=== PATIENT | male | born 1975 | race Caucasian/White ===

== ENCOUNTER 2016-11-24 16:43 | Emergency (ER) | payer MEDICARE, MEDICAID ==
[2016-11-24] MEDS ORDERED: TETANUS/DIPHTHERIA/PERTUSSIS 0.5 ML SYRINGE IM ONE ×2 (17:37→17:45)
[2016-11-24] MEDS ORDERED: CIPROFLOXACIN 250 MG TABLET PO STA (17:56)
[2016-11-24] MEDS ORDERED: CIPROFLOXACIN 250 MG TABLET PO ONE ×2 (17:59→18:01)
[2016-11-24] MEDS ORDERED: IBUPROFEN 400 MG TABLET PO STA (18:06)
[2016-11-24] MEDS ORDERED: IBUPROFEN 400 MG TABLET PO ONE (18:08)
== END 2016-11-24 18:37 | disposition home or self-care (01) ==
DX: S91.331A Puncture wound without foreign body, right foot, initial encounter (principal); W45.0XXA Nail entering through skin, initial encounter; G40.909 Epilepsy, unspecified, not intractable, without status epilepticus
CPT/HCPCS: 99283; A9270

== ENCOUNTER 2017-02-27 12:48 | Outpatient (CLI) | payer MEDICARE, MEDICAID ==
[~2017-02-27 12:48] MED LIST: IOPAMIDOL-300 100 ML VIAL IVP ONE
[2017-02-27 13:11] LABS: BASOPHILS % (AUTO) 0.5 %; EOSINOPHILS # (AUTO) 0.1 10^3/uL (0.0-0.7); HCT - HEMATOCRIT 46.8 % (42.0-52.0); HGB - HEMOGLOBIN 16.5 g/dL (14.0-18.0); LYMPHOCYTES # (AUTO) 2.7 10^3/uL (1.5-3.5); LYMPHOCYTES % (AUTO) 47.2 %; MEAN CORPUSCULAR HEMOGLOBIN 30.2 pg (27.0-31.0); MEAN CORPUSCULAR HGB CONC 35.3 g/dL (32.0-36.0); MEAN CORPUSCULAR VOLUME 85.5 fL (80.0-94.0); MEAN PLATELET VOLUME 9.3 fL (7.4-11.4); MONOCYTES # (AUTO) 0.6 10^3/uL (0.0-1.0); MONOCYTES % (AUTO) 9.8 %; NEUTROPHILS # (AUTO) 2.4 10^3/uL (1.5-6.6); NEUTROPHILS % (AUTO) 41.5 %; NUCLEATED RED BLOOD CELLS AUTO 0.1 /100WBC; RED BLOOD COUNT 5.47 10^6/uL (4.70-6.10); RED CELL DISTRIBUTION WIDTH 14.2 % (12.0-15.0); UNCORRECTED WHITE BLOOD COUNT 5.8 x10^3/uL; WHITE BLOOD COUNT 5.8 x10^3/uL (4.8-10.8)
[2017-02-27 13:11] LABS: BILIRUBIN,URINE NEGATIVE (NEGATIVE); PH,URINE 8.5 PH (5.0-7.5)
[2017-02-27 13:18] LABS: WBC,URINE 0-3 /HPF (0-3)
[2017-02-27 13:22] LABS: ALBUMIN/GLOBULIN RATIO 1.6 (1.0-2.2); BILIRUBIN,TOTAL 0.9 mg/dL (0.2-1.0); CALCIUM 9.9 mg/dL (8.5-10.3); CREATININE 0.8 mg/dL (0.6-1.2); POTASSIUM 3.6 mmol/L (3.5-5.0); TOTAL PROTEIN 7.1 g/dL (6.7-8.2)
[2017-02-28] MEDS ORDERED: IOPAMIDOL-300 100 ML VIAL IVP ONE (05:18)
--- NOTE | 2017-02-28 15:33 | CT Report ---
CT IVP: 02/27/2017 CLINICAL HISTORY: Personal history of urinary calculi with lower back pain. COMPARISON: 11/12/2015 TECHNIQUE: Noncontrast, contrast enhanced CT exam of the abdomen and pelvis were done. Contrast enhanced study was performed after 100 mL of Isovue-300 was injected. In accordance with CT protocol optimization, one or more of the following dose reduction techniques were utilized for this exam: automated exposure control, adjustment of mA and/or KV based on patient size, or use of iterative reconstructive technique. FINDINGS: On noncontrast CT exam, right kidney and ureter show no calculi and no pyelocalyceal system dilatation is seen. Left kidney demonstrates two small calculi, each measuring 1-2 mm. These reside adjacent to a mid and lower pole jerman. Left pyelocalyceal system and left ureter show no significant abnormality. Bladder shows no significant abnormality on the noncontrast study. Contrast enhanced CT exam demonstrates right kidney and right ureter to be normal as is the right pyelocalyceal system. Left kidney demonstrates a small benign cyst within the lateral aspect of its upper pole measuring 6 mm. Left pyelocalyceal system and left ureter appear normal. Bladder shows no significant abnormality. Patient's prostate does not appear enlarged. Seminal vesicles appear normal. Lower lung rose show no significant abnormality. Liver, spleen and pancreas appear normal. Gallbladder is not distended. Common hepatic and common bile duct appeared normal. Pancreas is normal. Spleen appears normal. Adrenal glands are normal. Periaortic and pericaval regions show no significant abnormality. Mild gas pattern demonstrates no significant abnormality. The appendix is visualized and is normal. Small bowel shows no significant abnormality. Colon shows no significant abnormality. Bones show no significant abnormality. IMPRESSION: TWO TINY CALCULI ARE NOTED IN THE LEFT KIDNEY ADJACENT TO A MID AND LOWER POLE JERMAN WITHOUT OTHER ABNORMALITY NOTED. MTDD
== END 2017-02-27 12:49 | disposition home or self-care (01) ==
LOC: DI 12:48
PROVIDERS: ATTEND Family Medicine
DX: N20.0 Calculus of kidney (principal)
CPT/HCPCS: 36415; 74178; 80053; 81001; 85025; Q9967

== ENCOUNTER 2018-06-01 11:05 | Outpatient (CLI) | payer MEDICARE, MEDICAID ==
[2018-06-01 18:57] LABS: BASOPHILS % (AUTO) 0.4 %; EOSINOPHILS # (AUTO) 0.1 10^3/uL (0.0-0.7); EOSINOPHILS % (AUTO) 0.9 %; HGB - HEMOGLOBIN 17.1 g/dL (14.0-18.0); LYMPHOCYTES # (AUTO) 2.2 10^3/uL (1.5-3.5); LYMPHOCYTES % (AUTO) 36.4 %; MEAN CORPUSCULAR HEMOGLOBIN 29.9 pg (27.0-31.0); MEAN CORPUSCULAR HGB CONC 33.7 g/dL (32.0-36.0); MEAN CORPUSCULAR VOLUME 88.7 fL (80.0-94.0); MEAN PLATELET VOLUME 8.6 fL (7.4-11.4); MONOCYTES # (AUTO) 0.5 10^3/uL (0.0-1.0); MONOCYTES % (AUTO) 8.1 %; NEUTROPHILS # (AUTO) 3.3 10^3/uL (1.5-6.6); NEUTROPHILS % (AUTO) 54.2 %; PLT - PLATELET COUNT 169 10^3/uL (130-450); RED BLOOD COUNT 5.73 10^6/uL (4.70-6.10); RED CELL DISTRIBUTION WIDTH 14.3 % (12.0-15.0); WHITE BLOOD COUNT 6.2 x10^3/uL (4.8-10.8)
[2018-06-01 19:36] LABS: ALBUMIN/GLOBULIN RATIO 1.3 (1.0-2.2); ALKALINE PHOSPHATASE 74 IU/L (42-121); ALT ALANINE AMINOTRANSFERASE 87 IU/L (10-60); AST ASPARTATE AMINOTRANSFERASE 39 IU/L (10-42); BILIRUBIN,TOTAL 0.4 mg/dL (0.2-1.0); BUN - BLOOD UREA NITROGEN 14 mg/dL (6-20); CALCIUM 9.7 mg/dL (8.5-10.3); CARBON DIOXIDE - CO2 27 mmol/L (21-32); CHLORIDE 96 mmol/L (101-111); CHOL/HDL RATIO 6.2 (<5.0); CHOLESTEROL 279 mg/dL; CREATININE 0.8 mg/dL (0.6-1.2); GFR - MDRD 105 (>89); GLUCOSE 100 mg/dL (70-100); HDL CHOLESTEROL 45 mg/dL; LDL CHOLESTEROL,CALCULATED 168 mg/dL; LDL/HDL RATIO 3.7 (<3.6); SODIUM 135 mmol/L (135-145); VALPROIC ACID (DEPAKOTE) 100.2 ug/mL; VLDL CHOLESTEROL 66 mg/dL
== END 2018-06-01 11:06 | disposition home or self-care (01) ==
LOC: LAB.WCP 11:05
PROVIDERS: ATTEND Physician Assistant Medical
DX: I10 Essential (primary) hypertension (principal); E78.5 Hyperlipidemia, unspecified; R56.9 Unspecified convulsions; L73.9 Follicular disorder, unspecified
CPT/HCPCS: 36415; 80053; 80061; 80164; 80175; 83721; 85025

== ENCOUNTER 2018-06-15 09:47 | Outpatient (CLI) | payer MEDICARE, MEDICAID ==
--- NOTE | 2018-06-15 15:49 | Ultrasound Report ---
Reason: FATTY INFILTRATION OF THE LIVER Procedure Date: 06/15/2018 Accession Number: [id number] / [id number] Procedure: US - Abdomen Limited CPT Code: FULL RESULT: EXAM: ABDOMEN ULTRASOUND LIMITED, RUQ EXAM DATE: 06/15/2018 11:25 AM. CLINICAL HISTORY: Fatty liver. COMPARISON: ABDOMEN LIMITED 11/02/2015. TECHNIQUE: Real-time scanning was performed with static images obtained. FINDINGS: Liver: The liver is diffusely echogenic in appearance suggesting fibrofatty infiltration. No suspicious lesions or masses are identified. Some mild spurring is seen along the gallbladder fossa region. The liver is mildly enlarged measuring 19.7 cm, previously 16.6 cm. 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 Main portal vein flow: Hepatopetal. Gallbladder: Normal. No stones, wall thickening, or sonographic Allan's sign. Biliary System: CBD measures 5 mm. No intrahepatic or extrahepatic ductal dilatation. Other: None. IMPRESSION: Mild hepatomegaly and fatty change of the liver similar in appearance to prior study although there may be increase in overall liver size. RADIA
== END 2018-06-15 09:48 | disposition home or self-care (01) ==
LOC: DI 09:47
PROVIDERS: ATTEND Physician Assistant Medical
DX: K76.0 Fatty (change of) liver, not elsewhere classified (principal)
CPT/HCPCS: 76705

== ENCOUNTER 2019-02-07 13:41 | Outpatient (CLI) | payer MEDICARE, MEDICAID ==
--- NOTE | 2019-02-07 19:28 | XRAY Report ---
Reason: LOW BACK PAIN,ACUTE, LT SHOULDER PAIN Procedure Date: 02/07/2019 Accession Number: [id number] / [id number] Procedure: XR - Shoulder 3 View LT CPT Code: FULL RESULT: EXAM: LEFT SHOULDER RADIOGRAPHY EXAM DATE: 02/07/2019 02:22 PM. CLINICAL HISTORY: Fell from ladder 1 week ago now with left shoulder pain COMPARISON: None. TECHNIQUE: 3 views. FINDINGS: Bones: There is a 1 cm ossific fragment adjacent to the greater tuberosity. This may represent an avulsion fracture or calcific tendinitis. A definite fracture donor site is not identified. Joints: The glenohumeral and acromioclavicular joints are anatomically aligned. Soft tissues: The included hemithorax is unremarkable. IMPRESSION: 1 cm calcific fragment adjacent to the greater tuberosity. Question calcific tendinitis versus fracture. Further evaluation by MRI would be useful. RADIA
--- NOTE | 2019-02-08 08:59 | XRAY Report ---
Reason: LOW BACK PAIN LT SHOULDER Procedure Date: 02/07/2019 Accession Number: [id number] / [id number] Procedure: XR - Lumbar Spine 2 View CPT Code: FULL RESULT: EXAM: LUMBOSACRAL SPINE RADIOGRAPHY EXAM DATE: 02/07/2019 02:22 PM. CLINICAL HISTORY: Lumbar spine pain after fall from ladder COMPARISONS: CT IVP 02/27/2017. TECHNIQUE: 2 views. FINDINGS: Alignment: Slight dextroscoliosis apex at L2. Bones: Five [id number]-[id number] lumbar vertebral bodies are present. No fractures or bone lesions. Disks: Disk heights are maintained. Facets: Lower lumbar degenerative changes. Sacroiliac Joints: Unremarkable. Soft Tissues: Unremarkable. IMPRESSION: Mild lumbar dextroscoliosis and early degenerative change of the lower lumbar facet joints. No superimposed acute findings noted. RADIA
== END 2019-02-07 13:42 | disposition home or self-care (01) ==
LOC: DI 13:41
PROVIDERS: ATTEND Physician Assistant Medical
DX: M47.9 Spondylosis, unspecified (principal); M41.86 Other forms of scoliosis, lumbar region
CPT/HCPCS: 72100

== ENCOUNTER 2019-02-13 15:42 | Outpatient (CLI) | payer MEDICARE, MEDICAID ==
--- NOTE | 2019-02-14 13:27 | MRI Report ---
Reason: SHOULDER PAIN,LEFT Procedure Date: 02/13/2019 Accession Number: [id number] / [id number] Procedure: MRI - Shoulder LT W/O CPT Code: FULL RESULT: EXAM: LEFT SHOULDER MRI WITHOUT CONTRAST EXAM DATE: 02/13/2019 05:04 PM. CLINICAL HISTORY: Left shoulder pain and limited range of motion for several months. COMPARISON: SHOULDER 3 VIEW LT 02/07/2019 2:31 PM. TECHNIQUE: Multiplanar, multisequence T1-weighted and fluid-sensitive sequences of the shoulder without contrast. Other: None. FINDINGS: Acromioclavicular Region: The acromion is type I. Subcortical marrow edema, slight cortical irregularity, and tiny subcortical cysts at the distal end of the clavicle. The coracoacromial and coracoclavicular ligaments are intact. No subacromial/subdeltoid bursal fluid. Glenohumeral Region: No subluxation. No effusion or loose bodies. The articular cartilage is unremarkable. The glenohumeral ligaments and joint capsule are unremarkable. Bone Marrow: No fracture, marrow edema or bone lesions. Labrum: The labrum is unremarkable on this nonarthrographic study. Musculature/Rotator Cuff: Tendinosis and mild bursal surface fraying of the supraspinatus tendon. Tendinosis at the infraspinatus tendon. Focal calcification at the distal aspect of the supraspinatus-infraspinatus tendon junction. The teres minor tendon is intact. There is subscapularis tendinosis. No edema or fatty atrophy. Biceps Tendon: The long head of the biceps tendon and biceps mat are intact. Other: The subcutaneous tissues are unremarkable. IMPRESSION: 1. Calcific tendinosis of the supraspinatus and infraspinatus tendons. Mild bursal surface fraying of the supraspinatus tendon. 2. Acromioclavicular joint osteoarthritis. RADIA
== END 2019-02-13 15:43 | disposition home or self-care (01) ==
LOC: DI 15:42
PROVIDERS: ATTEND Physician Assistant Medical
DX: M19.012 Primary osteoarthritis, left shoulder (principal); M75.32 Calcific tendinitis of left shoulder

== ENCOUNTER 2019-06-05 08:00 | Outpatient (CLI) | payer MEDICARE, MEDICAID ==
[2019-06-05 18:51] LABS: BASOPHILS % (AUTO) 0.4 %; EOSINOPHILS % (AUTO) 0.7 %; HGB - HEMOGLOBIN 16.7 g/dL (14.0-18.0); LYMPHOCYTES # (AUTO) 2.5 10^3/uL (1.5-3.5); LYMPHOCYTES % (AUTO) 45.9 %; MEAN CORPUSCULAR HEMOGLOBIN 30.7 pg (27.0-31.0); MEAN CORPUSCULAR HGB CONC 34.9 g/dL (32.0-36.0); MEAN CORPUSCULAR VOLUME 87.9 fL (80.0-94.0); MEAN PLATELET VOLUME 10.7 fL (7.4-11.4); MONOCYTES # (AUTO) 0.6 10^3/uL (0.0-1.0); MONOCYTES % (AUTO) 10.4 %; NEUTROPHILS # (AUTO) 2.3 10^3/uL (1.5-6.6); NEUTROPHILS % (AUTO) 42.1 %; PLT - PLATELET COUNT 209 10^3/uL (130-450); RED BLOOD COUNT 5.44 10^6/uL (4.70-6.10); RED CELL DISTRIBUTION WIDTH 13.3 % (12.0-15.0); WHITE BLOOD COUNT 5.5 x10^3/uL (4.8-10.8)
[2019-06-05 19:25] LABS: ALBUMIN 4.4 g/dL (3.2-5.5); ALBUMIN/GLOBULIN RATIO 1.5 (1.0-2.2); ALKALINE PHOSPHATASE 59 IU/L (42-121); ALT ALANINE AMINOTRANSFERASE 39 IU/L (10-60); AST ASPARTATE AMINOTRANSFERASE 23 IU/L (10-42); BILIRUBIN,TOTAL 0.7 mg/dL (0.2-1.0); BUN - BLOOD UREA NITROGEN 19 mg/dL (6-20); CALCIUM 9.8 mg/dL (8.5-10.3); CARBON DIOXIDE - CO2 28 mmol/L (21-32); CHLORIDE 96 mmol/L (101-111); CHOL/HDL RATIO 5.1 (<5.0); CHOLESTEROL 250 mg/dL; CREATININE 0.8 mg/dL (0.6-1.2); GFR - MDRD 105 (>89); GLUCOSE 92 mg/dL (70-100); HDL CHOLESTEROL 49 mg/dL; LDL CHOLESTEROL,CALCULATED 159 mg/dL; LDL/HDL RATIO 3.2 (<3.6); SODIUM 134 mmol/L (135-145); TOTAL PROTEIN 7.4 g/dL (6.7-8.2); VLDL CHOLESTEROL 42 mg/dL
[2019-06-05 19:34] LABS: VALPROIC ACID (DEPAKOTE) 86.4 ug/mL
[2019-06-05 19:51] LABS: PHENYTOIN (DILANTIN) < 2.5 ug/mL
== END 2019-06-05 23:59 | disposition home or self-care (01) ==
LOC: LAB.WCP 08:00
PROVIDERS: ATTEND Physician Assistant Medical
DX: E78.5 Hyperlipidemia, unspecified (principal); I10 Essential (primary) hypertension; G40.909 Epilepsy, unspecified, not intractable, without status epilepticus
CPT/HCPCS: 36415; 80053; 80061; 80164; 80175; 80185; 83721; 85025

== ENCOUNTER 2019-10-09 07:10 | Emergency (ER) | payer MEDICARE, MEDICAID ==
--- NOTE | 2019-10-09 07:38 | ED Physician Documentation ---
PD HPI NVD - Stated complaint Stated Complaint: VOMITING - Chief complaint Chief Complaint: Abd Pain - History obtained from History obtained from: Patient - History of Present Illness Timing - onset: How many days ago (2) Timing - duration: Days (2) Timing - details: Gradual onset, Still present Associated symptoms: Fever, Abdominal pain (intermittent upper cramping pain with vomiting; not consistent.), Loss of appetite. No: Near syncope / syncope Contributing factors: No: Bad food, Travel, Recent antibiotics Improved by: No: Vomiting Worsened by: Eating Similar symptoms before: Has not had sx before Recently seen: Not recently seen Review of Systems Constitutional: reports: Fever, Chills, Myalgias Nose: reports: Congestion. denies: Rhinorrhea / runny nose Throat: reports: Sore throat Respiratory: reports: Cough. denies: Dyspnea, Wheezing GI: reports: Abdominal Pain (upper abd at times), Nausea, Vomiting. denies: Diarrhea Skin: denies: Rash, Lesions Neurologic: reports: Generalized weakness. denies: Focal weakness, Numbness, Near syncope PD PAST MEDICAL HISTORY - Past Medical History Past Medical History: No Cardiovascular: None Respiratory: None Neuro: None Endocrine/Autoimmune: None - Past Surgical History Past Surgical History: Yes HEENT: Tonsil/Adenoidectomy - Present Medications Home Medications: Ambulatory Orders Medication Instructions Recorded Confirmed Albuterol Sulf [Ventolin Hfa 1 puffs INH DAILY 11/02/15 11/12/15 Inhaler] Cyclobenzaprine [Flexeril] 10 mg PO DAILY 11/02/15 12/09/[address] [Voltaren] 75 mg PO DAILY 11/02/15 12/09/15 Divalproex ER [Depakote ER] 500 mg PO BID 11/02/15 12/09/15 Loratadine/Pseudoephedrine 1 tab PO DAILY 11/02/15 12/09/15 [Loratadine-D 12 Hour Tablet] Verapamil ER [Calan SA] 180 mg PO DAILY 11/02/15 12/09/15 diphenhydrAMINE [Benadryl] 25 mg PO DAILY 11/02/15 12/09/15 lamoTRIgine [LaMICtal] 25 mg PO DAILY 11/02/15 12/09/15 traZODone [Desyrel] 100 mg PO DAILY 11/02/15 12/09/15 Azithromycin [Zithromax] 250 mg PO DAILY #6 tablet 12/09/15 HYDROcod/ACETAM 5/325 [Perkins 5/325] 1 - 2 ea PO Q6H PRN #15 tablet 12/09/15 Ciprofloxacin HCl [Cipro] 500 mg PO BID #9 tablet 11/24/16 Benzonatate [Tessalon Perle] 100 mg PO TID PRN #25 capsule 10/09/19 Ondansetron Odt [Zofran] 4 mg TL Q6H PRN #15 tablet 10/09/19 dexAMETHasone [Decadron] 4 mg PO DAILY #5 tablet 10/09/19 - Allergies Allergies/Adverse Reactions: Allergies Allergy/AdvReac Type Severity Reaction Status Date / Time Penicillins Allergy Rash Verified 10/09/19 07:18 Sulfa (Sulfonamide Allergy Rash Verified 10/09/19 07:18 Antibiotics) - Social History Does the pt smoke?: No Smoking Status: Never smoker Does the pt drink ETOH?: No Does the pt have substance abuse?: No - Immunizations Immunizations are current?: Yes - POLST Patient has POLST: No PD ED PE NORMAL - Vitals Vital signs reviewed: Yes - General General: Alert and oriented X 3, No acute distress, Well developed/nourished - HEENT HEENT: Moist mucous membranes, Pharynx benign - Neck Neck: Supple, no meningeal sign, No adenopathy - Cardiac Cardiac: RRR, No murmur - Respiratory Respiratory: Clear bilaterally - Abdomen Abdomen: Normal bowel sounds, Soft, Non distended, No organomegaly, Other (minimally tender epigastric area without guarding nor percussion tenderness. ) - Back Back: No CVA TTP - Derm Derm: Normal color, Warm and dry, No rash - Neuro Neuro: Alert and oriented X 3, No motor deficit, Normal speech Results - Vitals Vitals: Vital Signs - 24 hr 10/09/19 10/09/19 10/09/19 07:15 08:04 09:11 Temperature 36.7 C 38.3 C H 38 C H Heart Rate 99 86 89 Respiratory 16 18 18 Rate Blood Pressure 132/102 H 145/85 H 118/90 H O2 Saturation 96 92 100 Oxygen O2 Source Room air PD MEDICAL DECISION MAKING - ED course Complexity details: considered differential (seems flu-like with fever, cough, vomiting. Mild symptoms now and patient opting for PO meds for symptoms and not much eval. Did not feel he needed IV. ), d/w patient Departure - Departure Disposition: 01 Home, Self Care Clinical Impression: Nausea & vomiting Qualifiers: Vomiting type: unspecified Vomiting Intractability: non-intractable Qualified Code(s): R11.2 - Nausea with vomiting, unspecified Upper respiratory infection Qualifiers: URI type: unspecified URI Qualified Code(s): J06.9 - Acute upper respiratory infection, unspecified Condition: Stable Record reviewed to determine appropriate education?: Yes Instructions: ED Nausea Vomiting Follow-Up: Jaclyn Turk PA-C [Primary Care Provider] - Prescriptions: Benzonatate [Tessalon Perle] 100 mg PO TID PRN #25 capsule PRN Reason: Cough dexAMETHasone [Decadron] 4 mg PO DAILY #5 tablet Ondansetron Odt [Zofran] 4 mg TL Q6H PRN #15 tablet PRN Reason: Nausea / Vomiting Comments: Sounds likely to be a viral illness with the cough pain and nausea and vomiting. Use ondansetron if needed for nausea and vomiting as directed. Tessalon if needed for cough. Decadron steroid to reduce inflammation of the airways and will help with nausea as well. Tylenol if needed for fevers or pains. Stay well-hydrated with frequent fluids. I would anticipate 5 to 7 days of illness. Discharge Date/Time: 10/09/19 09:19
[2019-10-09] MEDS ORDERED: ONDANSETRON ODT 4 MG TABLET TL STA (08:05)
[2019-10-09] MEDS ORDERED: BENZONATATE 100 MG CAPSULE PO STA (08:06)
[2019-10-09] MEDS ORDERED: CHERRY SYRUP 10 ML UDC PO ONE (08:06)
[2019-10-09] MEDS ORDERED: DEXAMETHASONE 10 MG/ML VIAL PO STA (08:06)
[2019-10-09 09:12] VITALS: BP 118/90
== END 2019-10-09 09:19 | disposition home or self-care (01) ==
LOC: ED 07:10
DX: J06.9 Acute upper respiratory infection, unspecified (principal); R11.2 Nausea with vomiting, unspecified; R10.13 Epigastric pain
CPT/HCPCS: 99283; 99284; A9270; Q0162

== ENCOUNTER 2020-02-12 10:11 | Outpatient (CLI) | payer MEDICARE, MEDICAID ==
--- NOTE | 2020-02-13 01:14 | XRAY Report ---
Reason: LEFT HAND PALMAR DEEP LACERATION Procedure Date: 02/12/2020 Accession Number: [id number] / [id number] Procedure: WCP - Hand 3 View LT CPT Code: Final Report FULL RESULT: EXAM: LEFT HAND RADIOGRAPHY EXAM DATE: 02/12/2020 10:11 AM. CLINICAL HISTORY: LEFT HAND PALMAR DEEP LACERATION. COMPARISON: XR HAND MIN 3 VIEWS 10/27/2012 3:50 AM. TECHNIQUE: 3 views. FINDINGS: Bones: Normal. No fractures or bone lesions. Joints: Normal. No subluxations. Soft Tissues: Soft tissue swelling. No radiopaque foreign body in the soft tissues. IMPRESSION: Soft tissue swelling, but no evidence of fracture or radiopaque foreign body. RADIA
== END 2020-02-12 23:59 | disposition home or self-care (01) ==
LOC: DI.WCP 10:11
PROVIDERS: ATTEND Family Medicine
DX: S65.3 Injury of deep palmar arch (principal)

== ENCOUNTER 2021-06-07 21:16 | Outpatient (CLI) | payer MEDICARE, MEDICAID | END 2021-06-07 21:17 | disposition critical access hospital (66) | LOC: EMS 21:16 | DX: R07.9 Chest pain, unspecified (principal) | CPT/HCPCS: A0425; A0429 ==

== ENCOUNTER 2021-06-07 21:43 | Emergency (ER) | payer MEDICARE, MEDICAID ==
--- NOTE | 2021-06-08 00:40 | ED Physician Documentation ---
PD HPI CHEST PAIN - Stated complaint Stated Complaint: CP - Chief complaint Chief Complaint: Allergic Rx - History obtained from History obtained from: Patient - History of Present Illness Timing - onset: Yesterday Timing - onset during: Light activity (He got his 2nd Moderna vaccine yesterday and couple hours later started to have sternal area chest pain. This has persisted into today, worse with movement and palpation.) Timing - duration: Days (1) Timing - details: Gradual onset, Still present Quality: Aching, Sharp Location: Left chest (at sternal border) Radiation: No: Jaw, Neck, Back Associated symptoms: No: Shortness of air, Diaphoresis, Nausea, Feeling faint / dizzy, Palpitations Similar symptoms before: Has not had sx before Recently seen: Clinic (got Moderna 2nd vaccine yesterday and onset of the pain couple hours later.) Review of Systems Constitutional: denies: Fever, Chills Nose: denies: Rhinorrhea / runny nose, Congestion Throat: denies: Sore throat Cardiac: reports: Chest pain / pressure (local to left sternal border). denies: Palpitations, Pedal edema, Calf pain Respiratory: denies: Dyspnea, Cough, Wheezing GI: denies: Abdominal Pain, Nausea, Vomiting Musculoskeletal: denies: Extremity swelling Neurologic: denies: Focal weakness, Numbness, Near syncope PD PAST MEDICAL HISTORY - Past Medical History Cardiovascular: None Respiratory: None Neuro: None Endocrine/Autoimmune: None GI: None : None Psych: None Musculoskeletal: None Derm: None - Past Surgical History Past Surgical History: Yes HEENT: Tonsil/Adenoidectomy - Present Medications Home Medications: Ambulatory Orders Medication Instructions Recorded Confirmed Albuterol Sulf [Ventolin Hfa 1 puffs INH DAILY 11/02/15 11/12/15 Inhaler] Cyclobenzaprine [Flexeril] 10 mg PO DAILY 11/02/15 12/09/[address] [Voltaren] 75 mg PO DAILY 11/02/15 12/09/15 Divalproex ER [Depakote ER] 500 mg PO BID 11/02/15 12/09/15 Loratadine/Pseudoephedrine 1 tab PO DAILY 11/02/15 12/09/15 [Loratadine-D 12 Hour Tablet] Verapamil ER [Calan SA] 180 mg PO DAILY 11/02/15 12/09/15 diphenhydrAMINE [Benadryl] 25 mg PO DAILY 11/02/15 12/09/15 lamoTRIgine [LaMICtal] 25 mg PO DAILY 11/02/15 12/09/15 traZODone [Desyrel] 100 mg PO DAILY 11/02/15 12/09/15 Azithromycin [Zithromax] 250 mg PO DAILY #6 tablet 12/09/15 HYDROcod/ACETAM 5/325 [Rowena 5/325] 1 - 2 ea PO Q6H PRN #15 tablet 12/09/15 Ciprofloxacin HCl [Cipro] 500 mg PO BID #9 tablet 11/24/16 Benzonatate [Tessalon Perle] 100 mg PO TID PRN #25 capsule 10/09/19 Ondansetron Odt [Zofran] 4 mg TL Q6H PRN #15 tablet 10/09/19 dexAMETHasone [Decadron] 4 mg PO DAILY #5 tablet 10/09/19 - Allergies Allergies/Adverse Reactions: Allergies Allergy/AdvReac Type Severity Reaction Status Date / Time Penicillins Allergy Rash Verified 06/07/21 21:53 Sulfa (Sulfonamide Allergy Rash Verified 06/07/21 21:53 Antibiotics) - Social History Does the pt smoke?: No Smoking Status: Never smoker Does the pt drink ETOH?: No Does the pt have substance abuse?: No - Immunizations Immunizations are current?: Yes - POLST Patient has POLST: No PD ED PE NORMAL - Vitals Vital signs reviewed: Yes - General General: Alert and oriented X 3, No acute distress, Well developed/nourished - HEENT HEENT: Moist mucous membranes, Pharynx benign - Neck Neck: Supple, no meningeal sign, No adenopathy - Cardiac Cardiac: RRR, No murmur, No rub - Respiratory Respiratory: Clear bilaterally, Other (local chestwall tenderness reproducing the pain at left sternal border cartilage. ) - Abdomen Abdomen: Soft, Non tender - Derm Derm: Normal color, Warm and dry, No rash - Extremities Extremities: No edema, No calf tenderness / cord - Neuro Neuro: Alert and oriented X 3, No motor deficit, Normal speech Results - Vitals Vitals: Vital Signs - 24 hr 06/07/21 06/08/21 06/08/21 21:53 00:16 01:28 Temperature 36.5 C 36.3 C L 36.4 C L Heart Rate 100 102 H 89 Respiratory 16 18 18 Rate Blood Pressure 159/79 H 142/102 H 140/81 H O2 Saturation 100 100 99 Oxygen O2 Source Room air - EKG (time done) 22:12 Rate: Rate (enter#) (99) Rhythm: NSR Arcade: Normal Intervals: Normal UT QRS: Normal Ischemia: Normal ST segments. No: ST elevation c/w ischemia, ST depression PD MEDICAL DECISION MAKING - ED course Complexity details: considered differential (Seems costochondral with reproducible pain on palpation of the left sternal border. Presume inflammatory response from the vaccine. No rash. EKG is normal and vitals are good. Seems low risk for other process and shared decision is to not do much more testing.), d/w patient Departure - Departure Disposition: 01 Home, Self Care Clinical Impression: Costochondral chest pain Condition: Stable Record reviewed to determine appropriate education?: Yes Instructions: ED Chest Pain Costochondritis Follow-Up: Jaclyn Turk PA-C [Primary Care Provider] - Comments: The vaccines can cause inflammation throughout some of the muscles and joints. This seems to be some inflammation in the cartilage of the chest wall. You can use some ibuprofen or naproxen 2-3 times daily for the next few days. Add Tylenol if needed for pain. Your EKG and vital signs are good. No signs of heart related cause. Discharge Date/Time: 06/08/21 01:28
[2021-06-08] MEDS ORDERED: IBUPROFEN 600 MG TABLET PO STA (01:13)
[2021-06-08] MEDS ORDERED: ACETAMINOPHEN 325 MG TABLET PO STA (01:13)
[2021-06-08 01:29] VITALS: BP 140/81
== END 2021-06-08 01:28 | disposition home or self-care (01) ==
LOC: EDUNIT# → ED 21:43
DX: M94.0 Chondrocostal junction syndrome [Tietze] (principal)
CPT/HCPCS: 93005; 99283; 99284; A9270

== ENCOUNTER 2021-07-21 08:00 | Outpatient (CLI) | payer MEDICARE, MEDICAID ==
--- NOTE | 2021-07-21 16:34 | XRAY Report ---
PROCEDURE: Foot 3 View LT INDICATIONS: L FOOT PX TECHNIQUE: 3 views of the foot were acquired. COMPARISON: None FINDINGS: Bones: No fractures or dislocations. No suspicious bony lesions. Soft tissues: No tibiotalar joint effusion. Achilles tendon appears normal. IMPRESSION: No acute left foot fracture or dislocation. No suspicious bony lesion. Reviewed by: William Azul MD on 07/21/2021 4:33 PM PDT Approved by: William Azul MD on 07/21/2021 4:33 PM PDT Station ID: [id number]
== END 2021-07-21 23:59 | disposition home or self-care (01) ==
LOC: DI.N 08:00
PROVIDERS: ATTEND Family Medicine
DX: M79.672 Pain in left foot (principal)

== ENCOUNTER 2021-09-22 12:46 | Outpatient (CLI) | payer MEDICARE, MEDICAID ==
[2021-09-22 17:55] LABS: BASOPHILS % (AUTO) 0.4 %; EOSINOPHILS % (AUTO) 0.7 %; HGB - HEMOGLOBIN 17.3 g/dL (14.0-18.0); LYMPHOCYTES # (AUTO) 2.4 10^3/uL (1.5-3.5); LYMPHOCYTES % (AUTO) 42.8 %; MEAN CORPUSCULAR HEMOGLOBIN 29.9 pg (27.0-31.0); MEAN CORPUSCULAR HGB CONC 34.6 g/dL (32.0-36.0); MEAN CORPUSCULAR VOLUME 86.4 fL (80.0-94.0); MEAN PLATELET VOLUME 10.9 fL (7.4-11.4); MONOCYTES # (AUTO) 0.5 10^3/uL (0.0-1.0); MONOCYTES % (AUTO) 8.8 %; NEUTROPHILS # (AUTO) 2.6 10^3/uL (1.5-6.6); NEUTROPHILS % (AUTO) 46.8 %; PLT - PLATELET COUNT 185 10^3/uL (130-450); RED BLOOD COUNT 5.79 10^6/uL (4.70-6.10); RED CELL DISTRIBUTION WIDTH 12.8 % (12.0-15.0); WHITE BLOOD COUNT 5.5 x10^3/uL (4.8-10.8)
[2021-09-22 18:17] LABS: ALBUMIN 4.3 g/dL (3.2-5.5); ALBUMIN/GLOBULIN RATIO 1.4 (1.0-2.2); ALKALINE PHOSPHATASE 76 IU/L (42-121); ALT ALANINE AMINOTRANSFERASE 98 IU/L (10-60); AST ASPARTATE AMINOTRANSFERASE 43 IU/L (10-42); BILIRUBIN,TOTAL 0.7 mg/dL (0.2-1.0); BUN - BLOOD UREA NITROGEN 14 mg/dL (6-20); CALCIUM 9.7 mg/dL (8.5-10.3); CARBON DIOXIDE - CO2 28 mmol/L (21-32); CHLORIDE 98 mmol/L (101-111); CHOL/HDL RATIO 6.8 (<5.0); CHOLESTEROL 285 mg/dL; CREATININE 0.9 mg/dL (0.6-1.2); GFR - MDRD 90 (>89); GLUCOSE 109 mg/dL (70-100); HDL CHOLESTEROL 42 mg/dL; LDL CHOLESTEROL,CALCULATED 200 mg/dL; LDL/HDL RATIO 4.8 (<3.6); POTASSIUM 4.3 mmol/L (3.5-5.0); SODIUM 136 mmol/L (135-145); TOTAL PROTEIN 7.3 g/dL (6.7-8.2); TRIGLYCERIDES 214 mg/dL; VALPROIC ACID (DEPAKOTE) 97.1 ug/mL; VLDL CHOLESTEROL 43 mg/dL
[2021-09-22 18:24] LABS: THYROID STIMULATING HORMONE 1.8 uIU/mL (0.34-5.60)
== END 2021-09-22 23:59 | disposition home or self-care (01) ==
LOC: LAB.WCP 12:46
PROVIDERS: ATTEND Physician Assistant Medical
DX: E78.5 Hyperlipidemia, unspecified (principal); J30.9 Allergic rhinitis, unspecified; I10 Essential (primary) hypertension; G40.909 Epilepsy, unspecified, not intractable, without status epilepticus
CPT/HCPCS: 36415; 80053; 80061; 80164; 80175; 83721; 84443; 85025

== ENCOUNTER 2021-10-21 14:20 | Outpatient (CLI) | payer MEDICARE, MEDICAID ==
--- NOTE | 2021-10-21 17:20 | XRAY Report ---
REVISED: THIS REPORT WAS ORIGINALLY SIGNED ON 10/21/2021 @ 5:18 PM. EXAM CODE IS REVISED ON 11/01/2021. PROCEDURE: Foot 3 View LT INDICATIONS: LEFT FOOT OCCULT FX VS ARTHRITIS TECHNIQUE: 3 views of the foot were acquired. COMPARISON: 12/15/2016 FINDINGS: Bones: No fractures or dislocations. No suspicious bony lesions. Soft tissues: No tibiotalar joint effusion. Achilles tendon appears normal. IMPRESSION: No fracture. No osseous lesion. If there are persistent symptoms or continued clinical concern for pathology, then repeat plain film radiographs (7-10 days) or advanced imaging (CT, MR, bone scan) should be considered for further evaluation. Reviewed by: Jie Birmingham MD, PhD on 10/21/2021 5:18 PM PST Approved by: Jie Birmingham MD, PhD on 10/21/2021 5:18 PM PST Station ID: [id number]
== END 2021-10-21 14:21 | disposition home or self-care (01) ==
LOC: DI.N 14:20
PROVIDERS: ATTEND Physician Assistant Medical
DX: M79.672 Pain in left foot (principal)

== ENCOUNTER 2022-01-21 09:42 | Outpatient (CLI) | payer MEDICARE, MEDICAID ==
[2022-01-21 12:52] LABS: ALBUMIN 4.1 g/dL (3.2-5.5); ALBUMIN/GLOBULIN RATIO 1.4 (1.0-2.2); ALKALINE PHOSPHATASE 58 IU/L (42-121); ALT ALANINE AMINOTRANSFERASE 43 IU/L (10-60); AST ASPARTATE AMINOTRANSFERASE 26 IU/L (10-42); BUN - BLOOD UREA NITROGEN 19 mg/dL (6-20); CALCIUM 9.4 mg/dL (8.5-10.3); CARBON DIOXIDE - CO2 30 mmol/L (21-32); CHLORIDE 96 mmol/L (101-111); CHOL/HDL RATIO 5.8 (<5.0); CHOLESTEROL 259 mg/dL; CREATININE 0.8 mg/dL (0.6-1.2); GFR - MDRD 104 (>89); GLUCOSE 99 mg/dL (70-100); HDL CHOLESTEROL 45 mg/dL; LDL CHOLESTEROL,CALCULATED 173 mg/dL; LDL/HDL RATIO 3.8 (<3.6); POTASSIUM 4.3 mmol/L (3.5-5.0); SODIUM 135 mmol/L (135-145); TOTAL PROTEIN 7.1 g/dL (6.7-8.2); TRIGLYCERIDES 203 mg/dL; VLDL CHOLESTEROL 41 mg/dL
== END 2022-01-21 09:43 | disposition home or self-care (01) ==
LOC: LAB.N 09:42
PROVIDERS: ATTEND Physician Assistant Medical
DX: E78.5 Hyperlipidemia, unspecified (principal)
CPT/HCPCS: 36415; 80053; 80061; 83721

== ENCOUNTER 2022-06-22 10:23 | Outpatient (CLI) | payer MEDICARE, MEDICAID ==
[2022-06-22 12:29] LABS: CHOL/HDL RATIO 6.5 (<5.0); CHOLESTEROL 259 mg/dL; HDL CHOLESTEROL 40 mg/dL; LDL CHOLESTEROL,CALCULATED 172 mg/dL; LDL/HDL RATIO 4.3 (<3.6); TRIGLYCERIDES 233 mg/dL; VLDL CHOLESTEROL 47 mg/dL
== END 2022-06-22 10:24 | disposition home or self-care (01) ==
LOC: LAB.N 10:23
PROVIDERS: ATTEND Physician Assistant Medical
DX: E78.5 Hyperlipidemia, unspecified (principal)
CPT/HCPCS: 36415; 80061; 83721

== ENCOUNTER 2022-09-04 22:44 | Emergency (ER) | payer MEDICARE, MEDICAID ==
[2022-09-05 00:04] LABS: BASOPHILS % (AUTO) 0.3 %; EOSINOPHILS # (AUTO) 0.1 10^3/uL (0.0-0.7); EOSINOPHILS % (AUTO) 0.8 %; HCT - HEMATOCRIT 43.3 % (42.0-52.0); LYMPHOCYTES % (AUTO) 46.4 %; MEAN CORPUSCULAR HEMOGLOBIN 30.1 pg (27.0-31.0); MEAN CORPUSCULAR HGB CONC 34.6 g/dL (32.0-36.0); MEAN CORPUSCULAR VOLUME 86.8 fL (80.0-94.0); MEAN PLATELET VOLUME 10.4 fL (7.4-11.4); MONOCYTES # (AUTO) 0.7 10^3/uL (0.0-1.0); MONOCYTES % (AUTO) 11.2 %; NEUTROPHILS # (AUTO) 2.6 10^3/uL (1.5-6.6); NEUTROPHILS % (AUTO) 40.8 %; PLT - PLATELET COUNT 156 10^3/uL (130-450); RED BLOOD COUNT 4.99 10^6/uL (4.70-6.10); RED CELL DISTRIBUTION WIDTH 13.1 % (12.0-15.0); WHITE BLOOD COUNT 6.4 x10^3/uL (4.8-10.8)
--- NOTE | 2022-09-05 00:07 | XRAY Report ---
PROCEDURE: Chest 1 View X-Ray INDICATIONS: Chest pain TECHNIQUE: One view of the chest was acquired. COMPARISON: Chest x-ray 12/20/2016. FINDINGS: Surgical changes and devices: None. Lungs and pleura: There is pulmonary vascular prominence bilaterally consistent with pulmonary edema . No definite focal consolidation. No pleural effusions or pneumothorax. Mediastinum: Mediastinal contours appear normal. Heart size is normal. Bones and chest wall: No suspicious bony lesions. Overlying soft tissues appear unremarkable. IMPRESSION: 1. Bilateral pulmonary edema may be due to cardiogenic or noncardiogenic etiologies such as atypical pneumonia. Reviewed by: Ric Holt MD on 09/05/2022 12:05 AM [facility] Approved by: Ric Holt MD on 09/05/2022 12:05 AM PST Station ID: [id number]
--- NOTE | 2022-09-05 00:12 | ED Physician Documentation ---
PD HPI CHEST PAIN - Stated complaint Stated Complaint: CHEST PX - Chief complaint Chief Complaint: Cardiac - History obtained from History obtained from: Patient - History of Present Illness Timing - onset: Enter time (17:00), Today Timing - onset during: Light activity Timing - details: Abrupt onset Quality: Pain Location: Substernal Radiation: Other (DOES NOT RADIATE) Associated symptoms: Shortness of air, Cough. No: Diaphoresis, Nausea, Vomiting Recently seen: Not recently seen - Additional information Additional information: starting at approximately 5 PM today, patient has had productive cough, midline chest pain that is worse with cough. pain is midline low anterior chest. he has mild dyspnea. denies fever, denies n/v, denies extremity edema. He says his symptoms feel similar to previous bout of pneumonia. Review of Systems Constitutional: reports: Myalgias, Fatigue. denies: Fever Throat: denies: Sore throat Cardiac: reports: Chest pain / pressure. denies: Palpitations Respiratory: reports: Dyspnea, Cough. denies: Hemoptysis, Wheezing GI: reports: Reviewed and negative PD PAST MEDICAL HISTORY - Past Medical History Cardiovascular: None Respiratory: None Neuro: None Endocrine/Autoimmune: None GI: None : None Psych: None Musculoskeletal: None Derm: None - Past Surgical History Past Surgical History: Yes HEENT: Tonsil/Adenoidectomy - Present Medications Home Medications: Ambulatory Orders Medication Instructions Recorded Confirmed Albuterol Sulf [Ventolin Hfa 1 puffs INH DAILY 11/02/15 11/12/15 Inhaler] Cyclobenzaprine [Flexeril] 10 mg PO DAILY 11/02/15 12/09/[address] [Voltaren] 75 mg PO DAILY 11/02/15 12/09/15 Divalproex ER [Depakote ER] 500 mg PO BID 11/02/15 12/09/15 Loratadine/Pseudoephedrine 1 tab PO DAILY 11/02/15 12/09/15 [Loratadine-D 12 Hour Tablet] Verapamil ER [Calan SA] 180 mg PO DAILY 11/02/15 12/09/15 diphenhydrAMINE [Benadryl] 25 mg PO DAILY 11/02/15 12/09/15 lamoTRIgine [LaMICtal] 25 mg PO DAILY 11/02/15 12/09/15 traZODone [Desyrel] 100 mg PO DAILY 11/02/15 12/09/15 Azithromycin [Zithromax] 250 mg PO DAILY #6 tablet 12/09/15 HYDROcod/ACETAM 5/325 [[employer] 5/325] 1 - 2 ea PO Q6H PRN #15 tablet 12/09/15 Ciprofloxacin HCl [Cipro] 500 mg PO BID #9 tablet 11/24/16 Benzonatate [Tessalon Perle] 100 mg PO TID PRN #25 capsule 10/09/19 Ondansetron Odt [Zofran] 4 mg TL Q6H PRN #15 tablet 10/09/19 dexAMETHasone [Decadron] 4 mg PO DAILY #5 tablet 10/09/19 Azithromycin [Zithromax] 250 mg PO DAILY #4 tablet 09/05/22 - Allergies Allergies/Adverse Reactions: Allergies Allergy/AdvReac Type Severity Reaction Status Date / Time Penicillins Allergy Rash Verified 09/04/22 22:55 Sulfa (Sulfonamide Allergy Rash Verified 09/04/22 22:55 Antibiotics) - Social History Does the pt smoke?: No Smoking Status: Never smoker Does the pt drink ETOH?: No Does the pt have substance abuse?: No - Immunizations Immunizations are current?: Yes - POLST Patient has POLST: No PD ED PE NORMAL - Vitals Vital signs reviewed: Yes - General General: Alert and oriented X 3, No acute distress, Well developed/nourished - HEENT HEENT: Moist mucous membranes - Cardiac Cardiac: RRR, No murmur - Respiratory Respiratory: No respiratory distress, Clear bilaterally - Abdomen Abdomen: Soft, Non tender - Extremities Extremities: No edema Results - Vitals Vitals: Oxygen O2 Source Room air - EKG (time done) No standard instances Rate: Rate (enter#) (89) Rhythm: NSR [place]: Normal Intervals: Normal [place] QRS: Normal Ischemia: Normal ST segments - Labs Labs: Laboratory Tests 09/04/22 09/04/22 09/04/22 23:33 23:42 23:42 WBC 6.4 RBC 4.99 Hgb 15.0 Hct 43.3 MCV 86.8 MCH 30.1 MCHC 34.6 RDW 13.1 Plt Count 156 MPV 10.4 Neut # (Auto) 2.6 Lymph # (Auto) 3.0 Harper # (Auto) 0.7 Eos # (Auto) 0.1 Baso # (Auto) 0.0 Absolute Nucleated RBC 0.00 Nucleated RBC % 0.0 Sodium 136 Potassium 3.0 L Chloride 99 L Carbon Dioxide 28 Anion Gap 9.0 BUN 14 Creatinine 0.7 Estimated GFR (MDRD) 120 Glucose 94 Calcium 9.0 Total Bilirubin 0.6 AST 25 ALT 48 Alkaline Phosphatase 72 Troponin I High Sens B-Natriuretic Peptide 27 Total Protein 6.2 L Albumin 3.3 Globulin 2.9 Albumin/Globulin Ratio 1.1 Lipase 37 09/04/22 23:42 WBC RBC Hgb Hct MCV MCH MCHC RDW Plt Count MPV Neut # (Auto) Lymph # (Auto) Harper # (Auto) Eos # (Auto) Baso # (Auto) Absolute Nucleated RBC Nucleated RBC % Sodium Potassium Chloride Carbon Dioxide Anion Gap BUN Creatinine Estimated GFR (MDRD) Glucose Calcium Total Bilirubin AST ALT Alkaline Phosphatase Troponin I High Sens 3.2 B-Natriuretic Peptide Total Protein Albumin Globulin Albumin/Globulin Ratio Lipase - Rads (name of study) chest xray Radiology: Prelim report reviewed, See rad report PD MEDICAL DECISION MAKING - ED course Complexity details: reviewed results, re-evaluated patient, considered differential, d/w patient ED course: unremarkable blood test results including normal BNP and hs-cTn, no abnormalities on EKG. CXR s/o bilateral pulmonary edema although differential diagnosis of this finding, per radiologist's dictation, includes atypical pneumonia. Given lack of findings to suggest cardiac etiology of his symptoms, and that patient says his symptoms are similar to previous episode of pneumonia, will cover for possible early pneumonia with azithromycin (given first dose in ED, remainder of course of treatment was e-prescribed to his pharmacy of choice) Departure - Departure Disposition: 01 Home, Self Care Clinical Impression: Chest pain, Pneumonia Condition: Good Instructions: ED Chest Pain Atypical Unkn Cause, ED Pneumonia Adult Follow-Up: Jaclyn Turk PA-C [Primary Care Provider] - Prescriptions: Azithromycin [Zithromax] 250 mg PO DAILY #4 tablet Comments: Your blood tests have mostly normal results. Your potassium was mildly low, not enough to cause symptoms or concern. You were given a dose of potassium orally in the ER before discharge home, but you should follow up with your primary care provider; they might recommend rechecking the potassium within the next few weeks. Your chest xray had some haziness of both lungs, a nonspecific finding that might be due to an infection such as pneumonia. It appears to be a mild finding, and your blood tests did not suggest an advanced infection (your white blood cell count is normal, which tends to correlate with extent of an infection). I have started you on an antibiotic to cover for possible early pneumonia. A dose of azithromycin was given in the ER and the remainder of the antibiotic course has been electronically submitted to [facility] pharmacy in [place]. Discharge Date/Time: 09/05/22 01:50
[2022-09-05 00:20] LABS: ALBUMIN 3.3 g/dL (3.2-5.5); ALBUMIN/GLOBULIN RATIO 1.1 (1.0-2.2); BILIRUBIN,TOTAL 0.6 mg/dL (0.2-1.0); CREATININE 0.7 mg/dL (0.6-1.2); TOTAL PROTEIN 6.2 g/dL (6.7-8.2)
[2022-09-05 01:11] VITALS: BP 135/82
[2022-09-05] MEDS ORDERED: AZITHROMYCIN 250 MG TABLET PO STA (01:26)
[2022-09-05] MEDS ORDERED: POTASSIUM CHLORIDE 20 MEQ TABLET PO STA (01:27)
== END 2022-09-05 01:50 | disposition home or self-care (01) ==
LOC: ED 22:44
DX: J18.9 Pneumonia, unspecified organism (principal); R07.89 Other chest pain; E87.6 Hypokalemia
CPT/HCPCS: 36415; 71045; 80053; 83690; 83880; 84484; 85025; 93005; 99284; A9270

== ENCOUNTER 2022-09-13 10:52 | Outpatient (CLI) | payer MEDICARE, MEDICAID ==
[2022-09-13 18:03] LABS: CALCIUM 10.1 mg/dL (8.5-10.3); CREATININE 0.8 mg/dL (0.6-1.2); POTASSIUM 4.2 mmol/L (3.5-5.0)
== END 2022-09-13 10:53 | disposition home or self-care (01) ==
LOC: LAB.N 10:52
PROVIDERS: ATTEND Physician Assistant Medical
DX: E87.6 Hypokalemia (principal)
CPT/HCPCS: 36415; 80048

== ENCOUNTER 2022-09-21 10:34 | Emergency (ER) | payer MEDICARE, MEDICAID ==
[2022-09-21 10:50] VITALS: BP 148/100
--- NOTE | 2022-09-21 12:44 | XRAY Report ---
PROCEDURE: Chest 1 View X-Ray INDICATIONS: chest pain TECHNIQUE: One view of the chest was acquired. COMPARISON: None. FINDINGS: Surgical changes and devices: None. Lungs and pleura: No pleural effusions or pneumothorax. Minimal bibasilar atelectasis. Mediastinum: Mediastinal contours appear normal. Heart size is normal. Bones and chest wall: No suspicious bony lesions. Overlying soft tissues appear unremarkable. IMPRESSION: Minimal bibasilar atelectasis. Reviewed by: Shaka Jordan MD on 09/21/2022 12:42 PM PST Approved by: Shaka Jordan MD on 09/21/2022 12:42 PM PST Station ID: [id number]
--- NOTE | 2022-09-21 12:50 | ED Physician Documentation ---
PD HPI URI - Stated complaint Stated Complaint: COUGH/VALERIA - Chief complaint Chief Complaint: Resp - History obtained from History obtained from: Patient - History of Present Illness Timing - onset: How many weeks ago (3) Timing duration: Weeks (3) Timing details: Gradual onset, Still present Associated symptoms: Sore throat, Productive cough, Dyspnea. No: Fever, Hemoptysis, NVD Contributing factors: No: Sick contact, Immunocompromised, COPD / asthma Improves by: Rest, Medication Worsened by: Activity, Other (coughing) Similar symptoms before: Diagnosis (seen 2 weeks ago with productive cough and sore throat. Had some lower field interstitial changes on CXR diagnoses as atypical pneumonia and Rx with azithromycin. Patient states he got mostly improved with that but not completely and is worsening again the past 3-4 days. not a wheeze per se.) Recently seen: Emergency Dept Review of Systems Constitutional: reports: Myalgias, Fatigue Nose: denies: Rhinorrhea / runny nose, Congestion Throat: reports: Sore throat Cardiac: denies: Chest pain / pressure Respiratory: reports: Dyspnea, Cough. denies: Wheezing GI: denies: Abdominal Pain, Nausea, Vomiting, Diarrhea Skin: denies: Rash, Lesions Musculoskeletal: denies: Extremity swelling PD PAST MEDICAL HISTORY - Past Medical History Cardiovascular: None Respiratory: None, Asthma (no Dx asthma per se, but has had Rx for albuterol to use PRN by his provider. ) Neuro: None Endocrine/Autoimmune: None GI: None : None Psych: None Musculoskeletal: None Derm: None - Past Surgical History Past Surgical History: Yes HEENT: Tonsil/Adenoidectomy - Present Medications Home Medications: Ambulatory Orders Medication Instructions Recorded Confirmed Albuterol Sulf [Ventolin Hfa 1 puffs INH DAILY 11/02/15 11/12/15 Inhaler] Cyclobenzaprine [Flexeril] 10 mg PO DAILY 11/02/15 12/09/[address] [Voltaren] 75 mg PO DAILY 11/02/15 12/09/15 Divalproex ER [Depakote ER] 500 mg PO BID 11/02/15 12/09/15 Loratadine/Pseudoephedrine 1 tab PO DAILY 11/02/15 12/09/15 [Loratadine-D 12 Hour Tablet] Verapamil ER [Calan SA] 180 mg PO DAILY 11/02/15 12/09/15 diphenhydrAMINE [Benadryl] 25 mg PO DAILY 11/02/15 12/09/15 lamoTRIgine [LaMICtal] 25 mg PO DAILY 11/02/15 12/09/15 traZODone [Desyrel] 100 mg PO DAILY 11/02/15 12/09/15 Azithromycin [Zithromax] 250 mg PO DAILY #6 tablet 12/09/15 HYDROcod/ACETAM 5/325 [[place] 5/325] 1 - 2 ea PO Q6H PRN #15 tablet 12/09/15 Ciprofloxacin HCl [Cipro] 500 mg PO BID #9 tablet 11/24/16 Benzonatate [Tessalon Perle] 100 mg PO TID PRN #25 capsule 10/09/19 Ondansetron Odt [Zofran] 4 mg TL Q6H PRN #15 tablet 10/09/19 dexAMETHasone [Decadron] 4 mg PO DAILY #5 tablet 10/09/19 Azithromycin [Zithromax] 250 mg PO DAILY #4 tablet 09/05/22 Albuterol Sulf [Ventolin Hfa 1 - 2 puffs INH Q4HR PRN #1 each 09/21/22 Inhaler] Benzonatate [Tessalon] 100 mg PO TID PRN #20 cap 09/21/22 Doxycycline Hyclate 100 mg PO BID 7 Days #14 cap 09/21/22 - Allergies Allergies/Adverse Reactions: Allergies Allergy/AdvReac Type Severity Reaction Status Date / Time Penicillins Allergy Rash Verified 09/21/22 10:50 Sulfa (Sulfonamide Allergy Rash Verified 09/21/22 10:50 Antibiotics) - Living Situation Living Arrangement: reports: At home - Social History Does the pt smoke?: No Smoking Status: Never smoker Does the pt drink ETOH?: No Does the pt have substance abuse?: No - Immunizations Immunizations are current?: Yes - POLST Patient has POLST: No PD ED PE NORMAL - Vitals Vital signs reviewed: Yes - General General: Alert and oriented X 3, No acute distress, Well developed/nourished - HEENT HEENT: Moist mucous membranes, Pharynx benign - Neck Neck: Supple, no meningeal sign, No adenopathy - Cardiac Cardiac: RRR, No murmur - Respiratory Respiratory: No respiratory distress, Clear bilaterally - Abdomen Abdomen: Soft, Non tender - Derm Derm: Normal color, Warm and dry - Extremities Extremities: No edema, No calf tenderness / cord - Neuro Neuro: Alert and oriented X 3, No motor deficit, Normal speech Results - Vitals Vitals: Vital Signs - 24 hr 09/21/22 10:47 Temperature 36.8 C Heart Rate 93 Respiratory 16 Rate Blood Pressure 148/100 H O2 Saturation 98 Oxygen O2 Source Room air - Rads (name of study) chest xray Radiology: Prelim report reviewed (minimal bibasilar atelectasis.), EMP read indepedently (? lower infiltrates similar to prior exam, though lessened.), See rad report PD MEDICAL DECISION MAKING - ED course Complexity details: reviewed results (CXR with similar though less bibasilar infiltrates/atelectasis, which in conjunction with persistent cough/sputum, would consider persistent pneumonia. ), considered differential, d/w patient Departure - Departure Disposition: 01 Home, Self Care Clinical Impression: Persistent cough, Pneumonia Condition: Stable Record reviewed to determine appropriate education?: Yes Follow-Up: Jaclyn Turk PA-C [Primary Care Provider] - Prescriptions: Albuterol Sulf [Ventolin Hfa Inhaler] 1 - 2 puffs INH Q4HR PRN #1 each PRN Reason: Shortness Of Air/Wheezing Doxycycline Hyclate 100 mg PO BID 7 Days #14 cap Benzonatate [Tessalon] 100 mg PO TID PRN #20 cap PRN Reason: Cough Comments: Your x-ray today shows improvement compared to the previous one. There is some still residual findings suggesting incompletely resolved pneumonia. This would correlate with your persistent cough and sputum. We can try different antibiotic doxycycline twice daily for 7 days. I would also have you take benzonatate/Tessalon if needed for cough. Stay well- hydrated. In order to help have more sputum production and improved breathing (clear out the lungs better), I would suggest use albuterol inhaler 2 to 3 puffs 3-4 times daily for the next several days to week. I sent your prescriptions to [facility] pharmacy. Discharge Date/Time: 09/21/22 13:43
[2022-09-21] MEDS ORDERED: BENZONATATE 100 MG CAPSULE PO STA (13:34)
[2022-09-21] MEDS ORDERED: DOXYCYCLINE 100 MG TABLET PO STA (13:34)
== END 2022-09-21 13:43 | disposition home or self-care (01) ==
LOC: ED 10:34
DX: R05.3 Chronic cough (principal); J18.9 Pneumonia, unspecified organism
CPT/HCPCS: 71045; 99283; 99284; A9270

== ENCOUNTER 2022-10-20 14:13 | Outpatient (CLI) | payer MEDICARE, MEDICAID ==
--- NOTE | 2022-10-20 16:12 | CT Report ---
PROCEDURE: CHEST WO INDICATIONS: RHINOSINUSITIS, URI TECHNIQUE: Noncontrast 1mm axial images were acquired from the pulmonary apices to the posterior costophrenic an gles. Axial 5 mm soft tissue kernel reconstructions were performed as well as 8 mm axial MIP and cor onal and sagittal 5 mm reformations. For radiation dose reduction, the following was used: automate d exposure control, adjustment of mA and/or kV according to patient size. COMPARISON: CXR 09/21/2022. FINDINGS: Image quality: Excellent. Lungs and pleura: There is a mild streaky opacity most pronounced in the right middle and lingula. Th ere is mosaic attenuation. Punctate calcified granuloma. Airways are clear. No pleural effusions or pneumothorax. Mediastinum: Heart size is normal. No pericardial effusion. No mediastinal adenopathy by size crit eria. Thoracic aorta and central pulmonary arteries are normal in size. Retroesophageal right subcla vian artery, variant. Esophagus is normal in caliber. No hiatal hernia. Bones and chest wall: No suspicious bony lesions. No vertebral body compression fractures. No axil wild or supraclavicular adenopathy by size criteria. The thyroid is normal in size and there are no incidental findings. Abdomen: Visualized upper abdominal solid organs and bowel loops appear normal in the absence of con trast. IMPRESSION: Mosaic attenuation of the lung parenchyma. This is a nonspecific finding but could be seen in the set ting of small vessel disease or small airways disease. Mild atelectasis. High-resolution chest CT may provide additional information. Reviewed by: Jordon Richardson MD on 10/20/2022 4:11 PM [facility] Approved by: Jordon Richardson MD on 10/20/2022 4:11 PM PST Station ID: [id number]
--- NOTE | 2022-10-20 20:59 | CT Report ---
PROCEDURE: SINUS SCREENING WO INDICATIONS: RHINOSINUSITIS, URI TECHNIQUE: Noncontrast 3.0 mm axial images acquired from the frontal sinuses to the mid-sella, with coronal and sagittal reformats. For radiation dose reduction, the following was used: automated exposure control , adjustment of mA and/or kV according to patient size. COMPARISON: None. FINDINGS: Image quality: Excellent. Maxillary Sinuses: There is a mucous retention cyst seen along the inferior aspect of the left maxill champ sinus. Minimal mucosal thickening is seen within the inferior right maxillary sinus. Mild mucosal thickening can be seen within the inferior right maxillary sinus. No definite bony remodeling or francois truction can be seen. Ethmoid Air Cells: No bony remodeling or destruction. Sinuses are clear. Sphenoid Sinuses: No bony remodeling or destruction. Sinuses are clear. Frontal Sinuses: No bony remodeling or destruction. Sinuses are clear. Ostiomeatal Complexes: Ostiomeatal complexes are patent. No Susana cells. Miscellaneous: Visualized intra-orbital contents are normal. No vickie bullosa. There is mild to m oderate leftward nasal septal deviation, with a relatively prominent leftward directed bony nasal sep alex spur, as on series 5 image 15. IMPRESSION: Focal maxillary sinus disease is seen. Mild to moderate leftward nasal septal deviation, with a leftward directed bony nasal septal spur. Reviewed by: Dane Ford MD on 10/20/2022 7:57 PM [place] Approved by: Dane Ford MD on 10/20/2022 7:57 PM [facility] Station ID: [id number]
== END 2022-10-20 14:14 | disposition home or self-care (01) ==
LOC: DI 14:13
PROVIDERS: ATTEND Physician Assistant Medical
DX: J32.0 Chronic maxillary sinusitis (principal); J34.2 Deviated nasal septum; J34.89 Other specified disorders of nose and nasal sinuses; J98.11 Atelectasis; J06.9 Acute upper respiratory infection, unspecified

== ENCOUNTER 2023-06-08 10:21 | Outpatient (CLI) | payer MEDICARE, MEDICAID ==
--- NOTE | 2023-06-09 15:18 | Ultrasound Report ---
PROCEDURE: Abdomen Limited INDICATIONS: CHRONIC DIARRHEA TECHNIQUE: Real-time focused scanning was performed of the abdomen, with image documentation. COMPARISONS: Ultrasound 06/15/2018. FINDINGS: Liver: Increased liver echogenicity, commonly mild hepatic steatosis. Borderline hepatomegaly. Gallbladder: Unremarkable. Biliary ducts: Intrahepatic bile ducts are non-dilated. Extrahepatic bile duct caliber measures 2.9 mm. Normal is 6-7 mm or less in diameter, or 10 mm or less post-cholecystectomy. Pancreas: Visualized portions of the pancreas are sonographically normal. Body and tail are not seen secondary to overlying bowel gas. Right kidney: Normal in size and echotexture. Right kidney measures 12.1 cm long. No hydronephrosis or nephrolithiasis. No solid masses. No complex renal cystic lesions which require follow-up. IMPRESSION: Increased hepatic echogenicity is noted, possibly related to the hepatic steatosis but other sources of hepatocellular disease cannot be excluded. Recommend clinical correlation. Borderline hepatomegaly . Reviewed by: Rusty Tucker MD on 06/09/2023 3:17 PM PDT Approved by: Rusty Tucker MD on 06/09/2023 3:17 PM PDT Station ID: [id number]
== END 2023-06-08 10:22 | disposition home or self-care (01) ==
LOC: DI 10:21
PROVIDERS: ATTEND Physician Assistant Medical
DX: K52.9 Noninfective gastroenteritis and colitis, unspecified (principal)

== ENCOUNTER 2023-06-20 01:04 | Outpatient (CLI) | payer MEDICARE, MEDICAID | END 2023-06-20 23:59 | disposition critical access hospital (66) | LOC: EMS 01:04 | DX: R07.89 Other chest pain (principal); R05.9 Cough, unspecified ==

== ENCOUNTER 2023-06-20 01:31 | Emergency (ER) | payer MEDICARE, MEDICAID ==
[2023-06-20 01:45] VITALS: O2SAT 100
[2023-06-20 01:46] LABS: BASOPHILS % (AUTO) 0.5 %; EOSINOPHILS # (AUTO) 0.1 10^3/uL (0.0-0.7); EOSINOPHILS % (AUTO) 1.3 %; HCT - HEMATOCRIT 47.5 % (42.0-52.0); HGB - HEMOGLOBIN 16.6 g/dL (14.0-18.0); LYMPHOCYTES # (AUTO) 3.7 10^3/uL (1.5-3.5); LYMPHOCYTES % (AUTO) 44.6 %; MEAN CORPUSCULAR HEMOGLOBIN 29.7 pg (27.0-31.0); MEAN CORPUSCULAR HGB CONC 34.9 g/dL (32.0-36.0); MEAN PLATELET VOLUME 11.2 fL (7.4-11.4); MONOCYTES # (AUTO) 0.7 10^3/uL (0.0-1.0); MONOCYTES % (AUTO) 8.2 %; NEUTROPHILS # (AUTO) 3.7 10^3/uL (1.5-6.6); PLT - PLATELET COUNT 195 10^3/uL (130-450); RED BLOOD COUNT 5.59 10^6/uL (4.70-6.10); RED CELL DISTRIBUTION WIDTH 13.2 % (12.0-15.0); WHITE BLOOD COUNT 8.3 x10^3/uL (4.8-10.8)
--- NOTE | 2023-06-20 01:57 | ED Physician Documentation ---
PD HPI CHEST PAIN - Stated complaint Stated Complaint: CP - Chief complaint Chief Complaint: Cardiac - History obtained from History obtained from: Patient, EMS - Additional information Additional information: 48-year-old male with history of seizure disorder presents by EMS from home for chest pain since yesterday. Patient has had a nonproductive cough for the last 2 days and yesterday noticed generalized sharp chest pain. EMS administered 325 aspirin in route, vital signs were reported to be unremarkable. Patient told EMS that he had similar pain 1 year ago, and he was diagnosed with atypical pneumonia. Review of Systems Constitutional: denies: Fever, Chills Cardiac: reports: Chest pain / pressure. denies: Palpitations, Calf pain Respiratory: reports: Cough. denies: Wheezing GI: denies: Abdominal Pain, Nausea, Vomiting Musculoskeletal: denies: Neck pain, Back pain, Extremity pain Neurologic: denies: Generalized weakness, Focal weakness, Numbness, Headache, Head injury PD PAST MEDICAL HISTORY - Past Medical History Cardiovascular: None Respiratory: None, Asthma (no Dx asthma per se, but has had Rx for albuterol to use PRN by his provider. ) Neuro: None Endocrine/Autoimmune: None GI: None : None Psych: None Musculoskeletal: None Derm: None - Past Surgical History Past Surgical History: Yes HEENT: Tonsil/Adenoidectomy - Present Medications Home Medications: Ambulatory Orders Medication Instructions Recorded Confirmed Albuterol Sulf [Ventolin Hfa 1 puffs INH DAILY 11/02/15 11/12/15 Inhaler] Cyclobenzaprine [Flexeril] 10 mg PO DAILY 11/02/15 12/09/[address] [Voltaren] 75 mg PO DAILY 11/02/15 12/09/15 Divalproex ER [Depakote ER] 500 mg PO BID 11/02/15 12/09/15 Loratadine/Pseudoephedrine 1 tab PO DAILY 11/02/15 12/09/15 [Loratadine-D 12 Hour Tablet] Verapamil ER [Calan SA] 180 mg PO DAILY 11/02/15 12/09/15 diphenhydrAMINE [Benadryl] 25 mg PO DAILY 11/02/15 12/09/15 lamoTRIgine [LaMICtal] 25 mg PO DAILY 11/02/15 12/09/15 traZODone [Desyrel] 100 mg PO DAILY 11/02/15 12/09/15 Azithromycin [Zithromax] 250 mg PO DAILY #6 tablet 12/09/15 HYDROcod/ACETAM 5/325 [[place] 5/325] 1 - 2 ea PO Q6H PRN #15 tablet 12/09/15 Ciprofloxacin HCl [Cipro] 500 mg PO BID #9 tablet 11/24/16 Benzonatate [Tessalon Perle] 100 mg PO TID PRN #25 capsule 10/09/19 Ondansetron Odt [Zofran] 4 mg TL Q6H PRN #15 tablet 10/09/19 dexAMETHasone [Decadron] 4 mg PO DAILY #5 tablet 10/09/19 Azithromycin [Zithromax] 250 mg PO DAILY #4 tablet 09/05/22 Albuterol Sulf [Ventolin Hfa 1 - 2 puffs INH Q4HR PRN #1 each 09/21/22 Inhaler] Benzonatate [Tessalon] 100 mg PO TID PRN #20 cap 09/21/22 Doxycycline Hyclate 100 mg PO BID 7 Days #14 cap 09/21/22 - Allergies Allergies/Adverse Reactions: Allergies Allergy/AdvReac Type Severity Reaction Status Date / Time Penicillins Allergy Rash Verified 09/21/22 10:50 Sulfa (Sulfonamide Allergy Rash Verified 09/21/22 10:50 Antibiotics) - Social History Does the pt smoke?: No Smoking Status: Never smoker Does the pt drink ETOH?: No Does the pt have substance abuse?: No - Immunizations Immunizations are current?: Yes - POLST Patient has POLST: No PD ED PE NORMAL - Vitals Vital signs reviewed: Yes - General General: Alert and oriented X 3, No acute distress, Well developed/nourished - HEENT HEENT: Atraumatic, PERRL - Neck Neck: Supple, no meningeal sign - Cardiac Cardiac: RRR, No murmur, Strong equal pulses, Other (anterior chest wall tenderness to palpation. No deformity, no crepitus) - Respiratory Respiratory: No respiratory distress, Clear bilaterally - Abdomen Abdomen: Soft, Non tender, Non distended - Derm Derm: Normal color, Warm and dry, No rash - Extremities Extremities: No deformity, No tenderness to palpate, Normal ROM s pain, No edema - Neuro Neuro: Alert and oriented X 3, superintendent plant 2-12 intact, No motor deficit, Normal speech - Psych Psych: Normal mood, Normal affect Results - Vitals Vitals: Vital Signs - 24 hr 06/20/23 06/20/23 06/20/23 01:37 01:41 03:34 Temperature 37.1 C 36.4 C L 37 C Heart Rate 71 78 73 Respiratory 20 20 20 Rate Blood Pressure 155/104 H 110/72 121/74 O2 Saturation 99 100 100 Oxygen O2 Source Room air - EKG (time done) 0130 EKG releavant findings:: EKG personally interpreted by author of this note. Relevant findings are: Rate: Rate (enter#) (59) Rhythm: NSR - Labs Labs: Laboratory Tests 06/20/23 06/20/23 01:41 01:41 WBC 8.3 RBC 5.59 Hgb 16.6 Hct 47.5 MCV 85.0 MCH 29.7 MCHC 34.9 RDW 13.2 Plt Count 195 MPV 11.2 Neut # (Auto) 3.7 Lymph # (Auto) 3.7 H Ritch[place] # (Auto) 0.7 Eos # (Auto) 0.1 Baso # (Auto) 0.0 Absolute Nucleated RBC 0.00 Nucleated RBC % 0.0 Sodium 136 Potassium 3.5 Chloride 104 Carbon Dioxide 24 Anion Gap 8.0 BUN 13 Creatinine 0.7 Estimated GFR (MDRD) 120 Glucose 111 H Calcium 9.8 Total Bilirubin 0.5 AST 17 ALT 22 Alkaline Phosphatase 78 Troponin I High Sens 3.5 Total Protein 6.4 Albumin 4.4 Globulin 2.0 L Albumin/Globulin Ratio 2.2 PD Medical Decision Making - ED course Complexity details: reviewed old records, reviewed results, re-evaluated patient, considered differential, d/w patient ED course: Reproducible chest wall tenderness to palpation. EKG is normal sinus rhythm. Patient is concerned because last time he had chest pain like this he was diagnosed with atypical pneumonia. Vital signs are unremarkable, lungs are clear to auscultation bilaterally. Will obtain cardiac work-up with chest x- ray. Laboratory work is unremarkable. Troponin is negative. Chest x-ray negative for acute findings. Patient reported feeling improved after anti- inflammatories. Patient informed of his negative labs and unremarkable x-ray, he is relieved to know that he does not have pneumonia and that his heart enzymes are normal. He will follow-up with his primary care physician. ED return precautions discussed at bedside. Departure - Departure Disposition: 01 Home, Self Care Clinical Impression: Chest pain Qualifiers: Chest pain type: unspecified Qualified Code(s): R07.9 - Chest pain, unspecified Condition: Stable Instructions: ED Chest Pain Atypical Unkn Cause Forms: PCP List Discharge Date/Time: 06/20/23 03:34
[2023-06-20 02:04] LABS: ALBUMIN 4.4 g/dL (3.2-5.5); ALBUMIN/GLOBULIN RATIO 2.2 (1.0-2.2); BILIRUBIN,TOTAL 0.5 mg/dL (0.2-1.0); CALCIUM 9.8 mg/dL (8.5-10.3); CREATININE 0.7 mg/dL (0.6-1.3); POTASSIUM 3.5 mmol/L (3.5-4.5); TOTAL PROTEIN 6.4 g/dL (6.4-8.9)
[2023-06-20 02:07] LABS: TROPONIN I HIGH SENSITIVITY 3.5 ng/L (2.3-19.7)
[2023-06-20] MEDS ORDERED: KETOROLAC 15 MG/ML VIAL IVP STA (02:26)
[2023-06-20 03:36] VITALS: BP 121/74
--- NOTE | 2023-06-20 08:32 | XRAY Report ---
PROCEDURE: Chest 1 View X-Ray INDICATIONS: CP/COUGH TECHNIQUE: One view of the chest was acquired. COMPARISON: Chest CT 10/20/2022 and radiographs 09/21/2022. FINDINGS: Surgical changes and devices: None. Lungs and pleura: No pleural effusions or pneumothorax. Mildly low lung volumes are again seen with stable horizontal opacities at the lung bases that likely represent atelectasis or scarring. Mediastinum: Mediastinal contours appear normal. Heart size is normal. Bones and chest wall: No suspicious bony lesions. Overlying soft tissues appear unremarkable. IMPRESSION: Mildly low lung volumes bilaterally. No acute cardiopulmonary process. There is no significant discrepancy when compared with the preliminary overnight report. Reviewed by: Corby Nguyen MD on 06/20/2023 8:31 AM PDT Approved by: Corby Nguyen MD on 06/20/2023 8:31 AM PDT Station ID: [id number]
== END 2023-06-20 03:34 | disposition home or self-care (01) ==
LOC: EDUNIT# → ED 01:31
DX: R07.9 Chest pain, unspecified (principal)
CPT/HCPCS: 36415; 80053; 84484; 85025; 93005; 96374; 99283

== ENCOUNTER 2023-10-12 12:58 | Outpatient (CLI) | payer MEDICARE, MEDICAID ==
[2023-10-12 17:44] LABS: BASOPHILS % (AUTO) 0.5 %; EOSINOPHILS # (AUTO) 0.1 10^3/uL (0.0-0.7); EOSINOPHILS % (AUTO) 0.9 %; HGB - HEMOGLOBIN 15.6 g/dL (14.0-18.0); LYMPHOCYTES # (AUTO) 2.5 10^3/uL (1.5-3.5); LYMPHOCYTES % (AUTO) 42.4 %; MEAN CORPUSCULAR HEMOGLOBIN 28.8 pg (27.0-31.0); MEAN CORPUSCULAR HGB CONC 33.2 g/dL (32.0-36.0); MEAN CORPUSCULAR VOLUME 86.7 fL (80.0-94.0); MEAN PLATELET VOLUME 11.3 fL (7.4-11.4); MONOCYTES # (AUTO) 0.5 10^3/uL (0.0-1.0); MONOCYTES % (AUTO) 8.7 %; NEUTROPHILS # (AUTO) 2.7 10^3/uL (1.5-6.6); NEUTROPHILS % (AUTO) 46.5 %; PLT - PLATELET COUNT 209 10^3/uL (130-450); RED BLOOD COUNT 5.42 10^6/uL (4.70-6.10); RED CELL DISTRIBUTION WIDTH 13.4 % (12.0-15.0); WHITE BLOOD COUNT 5.9 x10^3/uL (4.8-10.8)
[2023-10-12 18:07] LABS: ALBUMIN 4.3 g/dL (3.2-5.5); ALBUMIN/GLOBULIN RATIO 1.8 (1.0-2.2); ALKALINE PHOSPHATASE 64 IU/L (42-121); ALT ALANINE AMINOTRANSFERASE 19 IU/L (10-60); AST ASPARTATE AMINOTRANSFERASE 15 IU/L (10-42); BILIRUBIN,TOTAL 0.6 mg/dL (0.2-1.0); BUN - BLOOD UREA NITROGEN 17 mg/dL (6-20); CALCIUM 9.9 mg/dL (8.5-10.3); CARBON DIOXIDE - CO2 31 mmol/L (21-32); CHLORIDE 101 mmol/L (101-111); CHOL/HDL RATIO 5.7 (<5.0); CHOLESTEROL 223 mg/dL; CREATININE 0.8 mg/dL (0.6-1.3); GFR - MDRD 103 (>89); GLUCOSE 90 mg/dL (74-104); HDL CHOLESTEROL 39 mg/dL; LDL CHOLESTEROL,CALCULATED 134 mg/dL; LDL/HDL RATIO 3.4 (<3.6); POTASSIUM 4.5 mmol/L (3.5-4.5); SODIUM 137 mmol/L (135-145); TOTAL PROTEIN 6.7 g/dL (6.4-8.9); TRIGLYCERIDES 252 mg/dL (48-352); VLDL CHOLESTEROL 50 mg/dL
== END 2023-10-12 12:59 | disposition home or self-care (01) ==
LOC: LAB.N 12:58
PROVIDERS: ATTEND Physician Assistant Medical
DX: E78.5 Hyperlipidemia, unspecified (principal); Z12.5 Encounter for screening for malignant neoplasm of prostate; J30.9 Allergic rhinitis, unspecified
CPT/HCPCS: 36415; 80053; 80061; 85025; G0103; 83721; 84153

== ENCOUNTER 2023-12-02 19:11 | Outpatient (CLI) | payer MEDICARE, MEDICAID | END 2023-12-02 23:59 | disposition critical access hospital (66) | LOC: EMS 19:11 | DX: R07.9 Chest pain, unspecified (principal) | CPT/HCPCS: A0425; A0427 ==

== ENCOUNTER 2023-12-02 19:38 | Emergency (ER) | payer MEDICARE, MEDICAID ==
[2023-12-02 19:55] VITALS: O2SAT 98
--- NOTE | 2023-12-02 19:57 | ED Physician Documentation ---
PD HPI CHEST PAIN - Stated complaint Stated Complaint: CHEST PX - Chief complaint Chief Complaint: Cardiac - History obtained from History obtained from: Patient, EMS - Additional information Additional information: 48-year-old gentleman with history of seizure disorder and headaches but no history of heart disease presents for the evaluation of chest pain. 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 It has been coming and going and only lasts about 15 to 20 seconds at a time when he does have it. He has had a remote stress test in the past that was negative and note made that he has had a visit for chest pain every year or maybe twice a year on average with negative workups. He denies pedal edema, calf pain, recent travel, shortness of breath, dizziness, nausea. PD PAST MEDICAL HISTORY - Past Medical History Cardiovascular: None Respiratory: None, Asthma Neuro: None, Seizure disorder Endocrine/Autoimmune: None GI: None : None Psych: None Musculoskeletal: None Derm: None - Past Surgical History Past Surgical History: Yes HEENT: Tonsil/Adenoidectomy - Present Medications Home Medications: Ambulatory Orders Medication Instructions Recorded Confirmed Albuterol Sulf [Ventolin Hfa 1 puffs INH DAILY 11/02/15 12/02/23 Inhaler] Cyclobenzaprine [Flexeril] 10 mg PO DAILY 11/02/15 12/02/[address] [Voltaren] 75 mg PO DAILY 11/02/15 12/02/23 Divalproex ER [Depakote ER] 500 mg PO BID 11/02/15 12/02/23 Loratadine/Pseudoephedrine 1 tab PO DAILY 11/02/15 12/02/23 [Loratadine-D 12 Hour Tablet] Verapamil ER [Calan SA] 180 mg PO DAILY 11/02/15 12/02/23 diphenhydrAMINE [Benadryl] 25 mg PO DAILY 11/02/15 12/02/23 lamoTRIgine [LaMICtal] 25 mg PO DAILY 11/02/15 12/02/23 traZODone [Desyrel] 100 mg PO DAILY 11/02/15 12/02/23 Azithromycin [Zithromax] 250 mg PO DAILY #6 tablet 12/09/15 12/02/23 HYDROcod/ACETAM 5/325 [[place] 5/325] 1 - 2 ea PO Q6H PRN #15 tablet 12/09/15 12/02/23 Ciprofloxacin HCl [Cipro] 500 mg PO BID #9 tablet 11/24/16 12/02/23 Benzonatate [Tessalon Perle] 100 mg PO TID PRN #25 capsule 10/09/19 12/02/23 Ondansetron Odt [Zofran] 4 mg TL Q6H PRN #15 tablet 10/09/19 12/02/23 dexAMETHasone [Decadron] 4 mg PO DAILY #5 tablet 10/09/19 12/02/23 Azithromycin [Zithromax] 250 mg PO DAILY #4 tablet 09/05/22 12/02/23 Albuterol Sulf [Ventolin Hfa 1 - 2 puffs INH Q4HR PRN #1 each 09/21/22 12/02/23 Inhaler] Benzonatate [Tessalon] 100 mg PO TID PRN #20 cap 09/21/22 12/02/23 Doxycycline Hyclate 100 mg PO BID 7 Days #14 cap 09/21/22 12/02/23 Fluticasone [Flonase] 1 sprays GER DAILY 12/02/23 12/02/23 Losartan [Cozaar] 50 mg PO DAILY 12/02/23 12/02/23 Meloxicam 7.5 mg PO PRN PRN 12/02/23 12/02/23 Omeprazole 20 mg PO DAILY 12/02/23 12/02/23 hydroCHLOROthiazide [Hydrodiuril] 25 mg PO DAILY 12/02/23 12/02/23 - Allergies Allergies/Adverse Reactions: Allergies Allergy/AdvReac Type Severity Reaction Status Date / Time Penicillins Allergy Rash Verified 12/02/23 20:07 Sulfa (Sulfonamide Allergy Rash Verified 12/02/23 20:07 Antibiotics) - Social History Does the pt smoke?: No Smoking Status: Never smoker Does the pt drink ETOH?: No Does the pt have substance abuse?: No - Immunizations Immunizations are current?: Yes - POLST Patient has POLST: No PD ED PE NORMAL - Vitals Vital signs reviewed: Yes - General General: Alert and oriented X 3, No acute distress - Cardiac Cardiac: RRR, No murmur - Respiratory Respiratory: No respiratory distress, Clear bilaterally - Abdomen Abdomen: Non tender - Extremities Extremities: No edema, No calf tenderness / cord - Neuro Neuro: Alert and oriented X 3, Normal speech Results - Vitals Vitals: Vital Signs - 24 hr 12/02/23 12/02/23 19:43 19:51 Temperature 37.1 C Heart Rate 74 84 Respiratory 18 17 Rate Blood Pressure 144/81 H 128/81 H O2 Saturation 98 98 Oxygen O2 Source Room air - EKG (time done) 2000 EKG releavant findings:: EKG personally interpreted by author of this note. Relevant findings are: Rate: Rate (enter#) (68) Rhythm: NSR [place]: Normal Intervals: Normal [place] QRS: Normal Ischemia: Normal ST segments. No: ST elevation c/w ischemia, ST depression, T wave inversion - Labs Labs: Laboratory Tests 12/02/23 12/02/23 19:57 19:57 WBC 5.8 RBC 5.89 Hgb 16.8 Hct 49.9 MCV 84.7 MCH 28.5 MCHC 33.7 RDW 13.2 Plt Count 175 MPV 11.7 H Neut # (Auto) 2.6 Lymph # (Auto) 2.8 [place] # (Auto) 0.5 Eos # (Auto) 0.0 Baso # (Auto) 0.0 Absolute Nucleated RBC 0.00 Nucleated RBC % 0.0 Sodium 136 Potassium 3.2 L Chloride 98 L Carbon Dioxide 31 Anion Gap 7.0 BUN 14 Creatinine 0.8 Estimated GFR (MDRD) 103 Glucose 97 Calcium 9.8 Total Bilirubin 0.6 AST 14 ALT 19 Alkaline Phosphatase 71 Troponin I High Sens 2.3 Total Protein 6.7 Albumin 4.4 Globulin 2.3 Albumin/Globulin Ratio 1.9 Lipase 19 PD Medical Decision Making - ED course ED course: Heart score 2 for obesity and age. PERC negative. Nothing in the history or physical to suggest dissection, pneumonia, Boerhaave syndrome. CBC, CMP, troponin are negative/normal with the exception of mild hypokalemia repleted orally. On reevaluation at 8:30 PM he is pain-free, has no complaints. Given that it started while painting and is intermittent and associated with right arm motion and seems mostly like a chest wall issue. Departure - Departure Disposition: 01 Home, Self Care Clinical Impression: Chest wall pain Condition: Good Instructions: ED Strain Chest Wall Comments: Your heart testing looks okay. If it has been a long time since your last stress test, I do recommend you follow-up with TOSHA Turk for consideration of ordering that. Call your doctor to arrange a follow-up appointment, make the next available appointment. In the interim, return anytime if worse or if new symptoms develop. Forms: PCP List
[2023-12-02 20:02] LABS: BASOPHILS % (AUTO) 0.3 %; EOSINOPHILS % (AUTO) 0.3 %; HCT - HEMATOCRIT 49.9 % (42.0-52.0); HGB - HEMOGLOBIN 16.8 g/dL (14.0-18.0); LYMPHOCYTES # (AUTO) 2.8 10^3/uL (1.5-3.5); LYMPHOCYTES % (AUTO) 47.1 %; MEAN CORPUSCULAR HEMOGLOBIN 28.5 pg (27.0-31.0); MEAN CORPUSCULAR HGB CONC 33.7 g/dL (32.0-36.0); MEAN CORPUSCULAR VOLUME 84.7 fL (80.0-94.0); MEAN PLATELET VOLUME 11.7 fL (7.4-11.4); MONOCYTES # (AUTO) 0.5 10^3/uL (0.0-1.0); NEUTROPHILS # (AUTO) 2.6 10^3/uL (1.5-6.6); PLT - PLATELET COUNT 175 10^3/uL (130-450); RED BLOOD COUNT 5.89 10^6/uL (4.70-6.10); RED CELL DISTRIBUTION WIDTH 13.2 % (12.0-15.0); WHITE BLOOD COUNT 5.8 x10^3/uL (4.8-10.8)
[2023-12-02 20:17] LABS: ALBUMIN 4.4 g/dL (3.2-5.5); ALBUMIN/GLOBULIN RATIO 1.9 (1.0-2.2); BILIRUBIN,TOTAL 0.6 mg/dL (0.2-1.0); CALCIUM 9.8 mg/dL (8.5-10.3); CREATININE 0.8 mg/dL (0.6-1.3); POTASSIUM 3.2 mmol/L (3.5-4.5); TOTAL PROTEIN 6.7 g/dL (6.4-8.9)
[2023-12-02 20:29] LABS: TROPONIN I HIGH SENSITIVITY 2.3 ng/L (2.3-19.7)
[2023-12-02] MEDS: POTASSIUM BICARB 25 MEQ TABLET PO STA (20:43)
[2023-12-02 20:51] VITALS: BP 144/77
--- NOTE | 2023-12-02 21:10 | XRAY Report ---
PROCEDURE: Chest 1V INDICATIONS: Chest Pain TECHNIQUE: One view of the chest was acquired. COMPARISON: Prior chest plain film imaging 06/20/2023 and 10/20/2022. FINDINGS: Surgical changes and devices: None. Lungs and pleura: No pleural effusions or pneumothorax. Lungs are abnormal, with a pulmonary edema pattern but without cardiomegaly. Mediastinum: Mediastinal contours appear normal. Heart size is normal. Bones and chest wall: No suspicious bony lesions. Overlying soft tissues appear unremarkable. IMPRESSION: Alveolar edema pattern without cardiomegaly. This could represent an acute manifestation of alveolar edema of any etiology including acute cardiogenic origin. Atypical/viral pneumonia also can produce s uch an appearance.. Reviewed by: Nick Guardado MD on 12/02/2023 9:09 PM [facility] Approved by: Nick Guardado MD on 12/02/2023 9:09 PM [facility] Station ID: [id number]
== END 2023-12-02 20:47 | disposition home or self-care (01) ==
LOC: EDUNIT# → ED 19:38
DX: R07.89 Other chest pain (principal)
CPT/HCPCS: 36415; 71045; 80053; 83690; 84484; 85025; 93005; 99283; 99284; A9270

== ENCOUNTER 2023-12-11 17:55 | Emergency (ER) | payer MEDICARE, MEDICAID ==
--- NOTE | 2023-12-11 18:01 | ED Physician Documentation ---
PD HPI CHEST PAIN - Stated complaint Stated Complaint: CHEST PX - Chief complaint Chief Complaint: Cardiac - History obtained from History obtained from: Patient - History of Present Illness Timing - onset: How many weeks ago (has had pain in chest intermittently for weeks, with now left shoulder pain today, worse with ROM. No noted injury.) Timing - onset during: Light activity (movement of the left shoulder) Timing - details: Gradual onset, Still present, Waxing and waning Quality: Aching, Sharp, Pain Location: Left chest, Left shoulder/arm Worsened by: Movement, Palpation. No: Inspiration Associated symptoms: No: Shortness of air, Diaphoresis, Nausea, Feeling faint / dizzy Similar symptoms before: No diagnosis Review of Systems Constitutional: denies: Fever, Chills Nose: denies: Rhinorrhea / runny nose, Congestion Throat: denies: Sore throat Cardiac: denies: Palpitations, Pedal edema, Calf pain Respiratory: denies: Dyspnea, Cough GI: denies: Abdominal Pain, Nausea PD PAST MEDICAL HISTORY - Past Medical History Past Medical History: Yes Cardiovascular: None Respiratory: None, Asthma Neuro: None, Seizure disorder Endocrine/Autoimmune: None GI: None : None Psych: None Musculoskeletal: None Derm: None - Past Surgical History Past Surgical History: Yes HEENT: Tonsil/Adenoidectomy - Present Medications Home Medications: Ambulatory Orders Medication Instructions Recorded Confirmed Albuterol Sulf [Ventolin Hfa 1 puffs INH DAILY 11/02/15 12/11/23 Inhaler] Cyclobenzaprine [Flexeril] 10 mg PO DAILY 11/02/15 12/11/[address] [Voltaren] 75 mg PO DAILY 11/02/15 12/11/23 Divalproex ER [Depakote ER] 500 mg PO BID 11/02/15 12/11/23 Loratadine/Pseudoephedrine 1 tab PO DAILY 11/02/15 12/11/23 [Loratadine-D 12 Hour Tablet] Verapamil ER [Calan SA] 180 mg PO DAILY 11/02/15 12/11/23 diphenhydrAMINE [Benadryl] 25 mg PO DAILY 11/02/15 12/11/23 lamoTRIgine [LaMICtal] 25 mg PO DAILY 11/02/15 12/11/23 traZODone [Desyrel] 100 mg PO DAILY 11/02/15 12/11/23 Azithromycin [Zithromax] 250 mg PO DAILY #6 tablet 12/09/15 12/11/23 HYDROcod/ACETAM 5/325 [[place] 5/325] 1 - 2 ea PO Q6H PRN #15 tablet 12/09/15 12/11/23 Ciprofloxacin HCl [Cipro] 500 mg PO BID #9 tablet 11/24/16 12/11/23 Ondansetron Odt [Zofran] 4 mg TL Q6H PRN #15 tablet 10/09/19 12/11/23 dexAMETHasone [Decadron] 4 mg PO DAILY #5 tablet 10/09/19 12/11/23 Azithromycin [Zithromax] 250 mg PO DAILY #4 tablet 09/05/22 12/11/23 Albuterol Sulf [Ventolin Hfa 1 - 2 puffs INH Q4HR PRN #1 each 09/21/22 12/11/23 Inhaler] Doxycycline Hyclate 100 mg PO BID 7 Days #14 cap 09/21/22 12/11/23 Fluticasone [Flonase] 1 sprays GER DAILY 12/02/23 12/11/23 Losartan [Cozaar] 50 mg PO DAILY 12/02/23 12/11/23 Meloxicam 7.5 mg PO PRN PRN 12/02/23 12/11/23 Omeprazole 20 mg PO DAILY 12/02/23 12/11/23 hydroCHLOROthiazide [Hydrodiuril] 25 mg PO DAILY 12/02/23 12/11/23 Famotidine [Pepcid] 20 mg PO DAILY #20 tablet 12/11/23 Meloxicam [Mobic] 7.5 mg PO BID 10 Days #20 tablet 12/11/23 Sucralfate [Carafate] 1 gm PO HS 15 Days #150 ml 12/11/23 - Allergies Allergies/Adverse Reactions: Allergies Allergy/AdvReac Type Severity Reaction Status Date / Time Penicillins Allergy Rash Verified 12/11/23 18:16 Sulfa (Sulfonamide Allergy Rash Verified 12/11/23 18:16 Antibiotics) - Social History Does the pt smoke?: No Smoking Status: Never smoker Does the pt drink ETOH?: No Does the pt have substance abuse?: No - Immunizations Immunizations are current?: Yes - POLST Patient has POLST: No PD ED PE NORMAL - Vitals Vital signs reviewed: Yes - General General: Alert and oriented X 3, Well developed/nourished - Neck Neck: Supple, no meningeal sign, No adenopathy - Cardiac Cardiac: RRR, No murmur - Respiratory Respiratory: Clear bilaterally, Other (chestwall tenderness pectoral area left chest and at shoulder anterior and posterior with tenderness in muscles, and pain precipitated with ROM of shoulder against resistance. ) - Abdomen Abdomen: Soft, Non tender - Derm Derm: Normal color, Warm and dry, No rash - Neuro Neuro: Alert and oriented X 3, No motor deficit, No sensory deficit Results - Vitals Vitals: Oxygen O2 Source Room air - EKG (time done) 18:02 EKG releavant findings:: EKG personally interpreted by author of this note. Relevant findings are: Rate: Rate (enter#) (78) Rhythm: NSR [place]: Normal Intervals: Normal [place] QRS: Normal Ischemia: Normal ST segments. No: ST elevation c/w ischemia, ST depression - Labs Labs: Laboratory Tests 12/11/23 12/11/23 18:09 18:09 WBC 5.1 RBC 6.01 Hgb 17.4 Hct 50.7 MCV 84.4 MCH 29.0 MCHC 34.3 RDW 13.0 Plt Count 179 MPV 11.0 Neut # (Auto) 2.6 Lymph # (Auto) 1.8 [place] # (Auto) 0.7 Eos # (Auto) 0.0 Baso # (Auto) 0.0 Absolute Nucleated RBC 0.00 Nucleated RBC % 0.0 Sodium 136 Potassium 3.4 L Chloride 101 Carbon Dioxide 28 Anion Gap 7.0 BUN 15 Creatinine 0.8 Estimated GFR (MDRD) 103 Glucose 110 H Calcium 9.8 Total Bilirubin 0.8 AST 25 ALT 31 Alkaline Phosphatase 80 Troponin I High Sens 2.9 Total Protein 7.3 Albumin 4.6 Globulin 2.7 Albumin/Globulin Ratio 1.7 Lipase 19 - Rads (name of study) chest xray Relevant Findings:: Prelim report reviewed, EMP independent interpretation of test (no acute process) PD Medical Decision Making - ED course Complexity details: reviewed results, considered differential, d/w patient ED course: having chest pain that increases with movement and arm motion, and the shoulder is certainly tender to palpation anteriorly and posteriorly, with increased on rotational moves, c/w rotator tendonitis. No signs of heart disease and CXR clear. Departure - Departure Disposition: 01 Home, Self Care Clinical Impression: Chest pain, Shoulder tendonitis Condition: Stable Record reviewed to determine appropriate education?: Yes Instructions: ED Chest Pain NonCardiac, ED Sprain Shoulder Follow-Up: Jaclyn Turk PA-C [Primary Care Provider] - [facility] [Provider Group] Prescriptions: Sucralfate [Carafate] 1 gm PO HS 15 Days #150 ml Meloxicam [Mobic] 7.5 mg PO BID 10 Days #20 tablet Famotidine [Pepcid] 20 mg PO DAILY #20 tablet Comments: Your EKG and blood test called troponin are negative. No signs of heart failure no heart attack. Your chest x-ray is clear without any obvious pneumonia. There is perhaps a little vascular congestion but no signs of fluid around the lungs nor collapsed lung etc. Your chest pain may be coming some from the esophagus since you said it is affected by eating. We can go with some acid reducing medicine and antacids to help with that. However I think a large part of your pain is more musculoskeletal with some tenderness along the chest wall cartilage. Your shoulder certainly sounds like some irritation of the tendons (tendinitis) given the pain with touching around the area and with movement. I would suggest use of a sling to help reduce the motion and support the shoulder. Gently have the sling off and range of motion a few times a day so that shoulder is not stiff. For the chest and shoulder pain, I prescribed a twice daily anti-inflammatory called meloxicam. To that add Tylenol 500 to 650 mg 4 times daily as needed for pain 2. I sent prescriptions to your preferred pharmacy. Follow-up with your primary care if not improved well over the next several days to week. For the shoulder in particular, you can follow-up with orthopedics if not better in the next week or so as well. Forms: PCP List Discharge Date/Time: 12/11/23 19:39
[2023-12-11 18:14] LABS: BASOPHILS % (AUTO) 0.4 %; EOSINOPHILS % (AUTO) 0.4 %; HCT - HEMATOCRIT 50.7 % (42.0-52.0); HGB - HEMOGLOBIN 17.4 g/dL (14.0-18.0); LYMPHOCYTES # (AUTO) 1.8 10^3/uL (1.5-3.5); LYMPHOCYTES % (AUTO) 35.3 %; MEAN CORPUSCULAR HGB CONC 34.3 g/dL (32.0-36.0); MEAN CORPUSCULAR VOLUME 84.4 fL (80.0-94.0); MONOCYTES # (AUTO) 0.7 10^3/uL (0.0-1.0); MONOCYTES % (AUTO) 13.1 %; NEUTROPHILS # (AUTO) 2.6 10^3/uL (1.5-6.6); NEUTROPHILS % (AUTO) 50.4 %; PLT - PLATELET COUNT 179 10^3/uL (130-450); RED BLOOD COUNT 6.01 10^6/uL (4.70-6.10); WHITE BLOOD COUNT 5.1 x10^3/uL (4.8-10.8)
[2023-12-11 18:33] LABS: ALBUMIN 4.6 g/dL (3.2-5.5); ALBUMIN/GLOBULIN RATIO 1.7 (1.0-2.2); BILIRUBIN,TOTAL 0.8 mg/dL (0.2-1.0); CALCIUM 9.8 mg/dL (8.5-10.3); CREATININE 0.8 mg/dL (0.6-1.3); POTASSIUM 3.4 mmol/L (3.5-4.5); TOTAL PROTEIN 7.3 g/dL (6.4-8.9)
[2023-12-11 18:35] LABS: TROPONIN I HIGH SENSITIVITY 2.9 ng/L (2.3-19.7)
--- NOTE | 2023-12-11 18:41 | XRAY Report ---
PROCEDURE: Chest 1V INDICATIONS: Chest pain TECHNIQUE: One view of the chest was acquired. COMPARISON: None. FINDINGS: Surgical changes and devices: None. Lungs and pleura: No pleural effusions or pneumothorax. Prominent interstitial markings.. Mediastinum: Mediastinal contours appear normal. Heart size is mildly enlarged. Bones and chest wall: No suspicious bony lesions. Overlying soft tissues appear unremarkable. IMPRESSION: Mild cardiomegaly with prominent interstitial markings concerning for edema. Reviewed by: Rusty Tucker MD on 12/11/2023 6:40 PM PST Approved by: Rusty Tucker MD on 12/11/2023 6:40 PM PST Station ID: [id number]
[2023-12-11] MEDS: KETOROLAC 15 MG/ML VIAL IVP STA (19:25)
[2023-12-11] MEDS: ACETAMINOPHEN 500 MG TABLET PO STA (19:25)
[2023-12-11] MEDS: MAG HYDROX/AL HYDROX/SIMETH 30 ML UDC PO STA (19:25)
[2023-12-11] MEDS: FAMOTIDINE 20 MG TABLET PO STA (19:26)
[2023-12-11 19:40] VITALS: BP 144/93; O2SAT 97
== END 2023-12-11 19:39 | disposition home or self-care (01) ==
LOC: ED 17:55
DX: R07.9 Chest pain, unspecified (principal); M77.8 Other enthesopathies, not elsewhere classified
CPT/HCPCS: 36415; 71045; 80053; 83690; 84484; 85025; 93005; 96374; 99284; A9270

== ENCOUNTER 2024-03-12 08:30 | Outpatient (CLI) | payer MEDICARE, MEDICAID ==
--- NOTE | 2024-03-12 09:32 | CARDIAC PROCEDURE NOTE ---
Stress Test Report Service Date: 03/12/24 Service Time: 09:30 Ordering Provider: RACHELE Padilla Indication for Test: Assess intermittent chest discomfort. Significant Medical History: Julio Cesar is referred for an exercise treadmill test (ETT) today, to assess him for intermittent achy substernal chest discomfort, that has been present for several months to a couple of years intermittently. He describes this feeling coming on primarily while at rest but occasionally with exertion, lasting up to 30 minutes and associated with sweatiness and increased work of breathing. He was seen at the [facility] Emergency Department in early December for such an episode, with an EKG that appeared nonischemic and troponin that was negative. He also has a more extended symptom complex, that is primarily centered about his left anterior shoulder/biceps head, that is worsened by increased activity of his left, dominant arm. He was seen in the Emergency Department a second time, a few weeks after the first episode, with pain that was felt to be musculoskeletal and attributed to shoulder tendinitis, again with a negative troponin and EKG. 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 He does not feel that he is more likely to have the substernal chest discomfort with physical activity. He has been taking losartan and hydrochlorothiazide, though it sounds like more frequently at night than in the morning. He has not previously been recommended to undertake treatment with a statin for his dyslipidemia. Cardiac Risk Factors: Positive for hypertension (treated for about 5 yrs), untreated hyperlipidemia (TChol 223, LDLc 134, HDLc 39, TG 252 in 11/01) and family history of "heart disease" and HTN in his father and CVA in his mother; negative for diabetes and cigarette smoking history. Type of Stress Test: Exercise Treadmill Test (ETT) Procedure: -Exercise Treadmill Test- After signing informed consent, the patient performed treadmill exercise using a Paulino protocol. The patient exercised for 9 minutes 9 seconds and achieved a peak heart rate of 121 (70 percent predicted maximum heart rate for age), and an estimated workload of 10.4 METS. The test was terminated due to fatigue/shortness of breath and inability to keep up with the increased treadmill speed in stage 4. Resting heart rate: 60 Peak heart rate: 121 Abnormal HR response to exercise. Resting BP: 147/96 Peak BP: 212/102 Hypertensive resting systolic and diastolic BPs with physiologic increase in systolic BP and abnormal increase in diastolic BP in response to exercise. Room air oxygen saturation during exercise ranged between 97-98%. Rhythm during exercise: Sinus rhythm throughout without significant ectopy (computer states 9 PVCs recorded, but this may reflect artifact). Symptoms: After completion of the exercise protocol, during a 1 minute cooldown period of walking flat at 1.5 mph, he reported the occurrence of substernal chest pain at a level of "1/10" during most of the exercise. The discomfort went away almost immediately once he stopped walking completely and sat down, before there was an opportunity to administer a sublingual nitroglycerin tablet. EKG at rest showed normal sinus rhythm with possible left atrial abnormality but otherwise normal, with isoelectric ST segments and normal T-wave morphology throughout. EKG at peak stress showed no ischemia by EKG criteria. In Recovery HR decreased normally towards resting level, with slower decrease in BP (HR 70, BP 153/105 at 7:00). No imaging was ordered with this stress test. ILloyd MD, was present throughout this treadmill stress study and supervised it in its entirety. Summary: 1) Exercise tolerance was slightly below average for age and sex, as evidenced by MERCEDES of 13%. 2) Normal resting EKG. 3) Adequate level of exercise was not achieved on this treadmill stress test. See below for further recommendations. 4) Abnormal resting BP with normal response of systolic BP to exercise. 5) No ischemic changes by EKG criteria were seen at peak stress. 6) No imaging was ordered with this test. Conclusions and Recommendations: 1) Following completion of the exercise protocol the patient reported the occurrence of a very mild level of his usual substernal chest discomfort, that resolved quickly with rest, before we could administer SL NTG. Thus, from a symptom standpoint the study was positive/abnormal. 2) He could not achieve even close to target HR, so the EKG portion of the test is indeterminate. 3) Following the test we discussed some potential options moving forward and ultimately agreed that it probably makes most sense for him to be scheduled for a Lexiscan pharmacologic stress myocardial perfusion imaging study at [facility], along with a referral to be scheduled for a follow up appointment with one of the cardiologists there, to review his entire history, test results and next steps. 4) He was advised: a) not to push himself beyond an average exertional level; b) to return to the [facility] Emergency Department if he has an episode of chest discomfort lasting more than 10 to 15 minutes, or of intensity level greater than "3/10"; and c) to shift his daily administration of losartan and HCTZ to every morning, with continued intermittent monitoring, for optimal BP control. 5) He was also recommended to defer a routine screening colonoscopy, that was scheduled to be performed later this week, until such time as his cardiac status is better clarified.
== END 2024-03-12 08:31 | disposition home or self-care (01) ==
LOC: DI 08:30
PROVIDERS: ATTEND Nurse Practitioner
DX: R07.9 Chest pain, unspecified (principal); I10 Essential (primary) hypertension; E78.5 Hyperlipidemia, unspecified; Z82.49 Family history of ischemic heart disease and other diseases of the circulatory system
CPT/HCPCS: 93017

== ENCOUNTER 2024-05-06 13:44 | Emergency (ER) | payer MEDICARE, MEDICAID ==
[2024-05-06 14:19] VITALS: O2SAT 98
[2024-05-06 14:24] LABS: BASOPHILS % (AUTO) 0.5 %; EOSINOPHILS % (AUTO) 0.3 %; HCT - HEMATOCRIT 50.9 % (42.0-52.0); HGB - HEMOGLOBIN 17.2 g/dL (14.0-18.0); LYMPHOCYTES # (AUTO) 2.5 10^3/uL (1.5-3.5); LYMPHOCYTES % (AUTO) 42.9 %; MEAN CORPUSCULAR HEMOGLOBIN 28.9 pg (27.0-31.0); MEAN CORPUSCULAR HGB CONC 33.8 g/dL (32.0-36.0); MEAN CORPUSCULAR VOLUME 85.4 fL (80.0-94.0); MEAN PLATELET VOLUME 11.6 fL (7.4-11.4); MONOCYTES # (AUTO) 0.6 10^3/uL (0.0-1.0); MONOCYTES % (AUTO) 9.8 %; NEUTROPHILS # (AUTO) 2.7 10^3/uL (1.5-6.6); NEUTROPHILS % (AUTO) 46.2 %; PLT - PLATELET COUNT 164 10^3/uL (130-450); RED BLOOD COUNT 5.96 10^6/uL (4.70-6.10); RED CELL DISTRIBUTION WIDTH 13.2 % (12.0-15.0); WHITE BLOOD COUNT 5.8 x10^3/uL (4.8-10.8)
--- NOTE | 2024-05-06 14:41 | XRAY Report ---
PROCEDURE: Chest 1V INDICATIONS: Chest pain TECHNIQUE: One view of the chest was acquired. COMPARISON: 12/11/2023. FINDINGS: Surgical changes and devices: None. Lungs and pleura: No pleural effusions or pneumothorax. Lungs are clear. Mediastinum: Mediastinal contours appear normal. Heart size is normal. Bones and chest wall: No suspicious bony lesions. Overlying soft tissues appear unremarkable. IMPRESSION: No acute cardiopulmonary process. Reviewed by: William Azul MD on 05/06/2024 2:40 PM PDT Approved by: William Azul MD on 05/06/2024 2:40 PM PDT Station ID: [id number]
[2024-05-06 14:45] LABS: ALBUMIN 4.3 g/dL (3.2-5.5); ALBUMIN/GLOBULIN RATIO 1.8 (1.0-2.2); BILIRUBIN,TOTAL 0.8 mg/dL (0.2-1.0); CALCIUM 10.1 mg/dL (8.5-10.3); CREATININE 0.8 mg/dL (0.6-1.3); POTASSIUM 3.9 mmol/L (3.5-4.5); TOTAL PROTEIN 6.7 g/dL (6.4-8.9)
[2024-05-06 14:46] LABS: TROPONIN I HIGH SENSITIVITY 3.2 ng/L (2.3-19.7)
[2024-05-06 15:33] VITALS: BP 144/91
--- NOTE | 2024-05-06 15:43 | ED Physician Documentation ---
PD HPI CHEST PAIN - Stated complaint Stated Complaint: CHEST PX - Chief complaint Chief Complaint: Cardiac - History obtained from History obtained from: Patient - Additional information Additional information: This is a very nice a 49-year-old gentleman who presents with Occasional cough and mild shortness of breath since yesterday. He has also had some epigastric pain that radiates up into the sternum after eating. This has been for the last couple of days. He is tolerating p.o. not having any nausea or vomiting but has a burning aching sensation after eating. He has had this in the past, previously was on acid reducers but is not currently taking any of these. He has a mild cough, nonproductive, denies any sore throat or congestion, and only feels mildly short of breath. He also reports a few episodes of nonbloody diarrhea since yesterday, no constipation, no dysuria urgency or frequency. Review of Systems Constitutional: reports: Reviewed and negative Eyes: reports: Reviewed and negative Ears: reports: Reviewed and negative Nose: reports: Reviewed and negative Throat: reports: Reviewed and negative Cardiac: reports: Chest pain / pressure Respiratory: reports: Dyspnea, Cough GI: reports: Abdominal Pain, Diarrhea. denies: Nausea, Vomiting, Constipation : reports: Reviewed and negative Skin: reports: Reviewed and negative Musculoskeletal: reports: Reviewed and negative Neurologic: reports: Reviewed and negative Psychiatric: reports: Reviewed and negative PD PAST MEDICAL HISTORY - Past Medical History Past Medical History: Yes Cardiovascular: None Respiratory: None, Asthma Neuro: Seizure disorder Endocrine/Autoimmune: None GI: None : None Psych: None Musculoskeletal: None Derm: None - Past Surgical History Past Surgical History: Yes HEENT: Tonsil/Adenoidectomy - Present Medications Home Medications: Ambulatory Orders Medication Instructions Recorded Confirmed Albuterol Sulf [Ventolin Hfa 1 puffs INH DAILY 11/02/15 12/11/23 Inhaler] Cyclobenzaprine [Flexeril] 10 mg PO DAILY 11/02/15 12/11/[address] [Voltaren] 75 mg PO DAILY 11/02/15 12/11/23 Divalproex ER [Depakote ER] 500 mg PO BID 11/02/15 12/11/23 Loratadine/Pseudoephedrine 1 tab PO DAILY 11/02/15 12/11/23 [Loratadine-D 12 Hour Tablet] Verapamil ER [Calan SA] 180 mg PO DAILY 11/02/15 12/11/23 diphenhydrAMINE [Benadryl] 25 mg PO DAILY 11/02/15 12/11/23 lamoTRIgine [LaMICtal] 25 mg PO DAILY 11/02/15 12/11/23 traZODone [Desyrel] 100 mg PO DAILY 11/02/15 12/11/23 Azithromycin [Zithromax] 250 mg PO DAILY #6 tablet 12/09/15 12/11/23 HYDROcod/ACETAM 5/325 [[place]ison 5/325] 1 - 2 ea PO Q6H PRN #15 tablet 12/09/15 03/01/30 Ciprofloxacin HCl [Cipro] 500 mg PO BID #9 tablet 11/24/16 12/11/23 Ondansetron Odt [Zofran] 4 mg TL Q6H PRN #15 tablet 10/09/19 12/11/23 dexAMETHasone [Decadron] 4 mg PO DAILY #5 tablet 10/09/19 12/11/23 Azithromycin [Zithromax] 250 mg PO DAILY #4 tablet 09/05/22 12/11/23 Albuterol Sulf [Ventolin Hfa 1 - 2 puffs INH Q4HR PRN #1 each 09/21/22 12/11/23 Inhaler] Doxycycline Hyclate 100 mg PO BID 7 Days #14 cap 09/21/22 12/11/23 Fluticasone [Flonase] 1 sprays GER DAILY 12/02/23 12/11/23 Losartan [Cozaar] 50 mg PO DAILY 12/02/23 12/11/23 Meloxicam 7.5 mg PO PRN PRN 12/02/23 12/11/23 Omeprazole 20 mg PO DAILY 12/02/23 12/11/23 hydroCHLOROthiazide [Hydrodiuril] 25 mg PO DAILY 12/02/23 12/11/23 Famotidine [Pepcid] 20 mg PO DAILY #20 tablet 12/11/23 Meloxicam [Mobic] 7.5 mg PO BID 10 Days #20 tablet 12/11/23 Sucralfate [Carafate] 1 gm PO HS 15 Days #150 ml 12/11/23 Pantoprazole Sodium [Protonix] 40 mg PO DAILY #30 tab 05/06/24 - Allergies Allergies/Adverse Reactions: Allergies Allergy/AdvReac Type Severity Reaction Status Date / Time Penicillins Allergy Rash Verified 05/06/24 14:08 Sulfa (Sulfonamide Allergy Rash Verified 05/06/24 14:08 Antibiotics) - Social History Does the pt smoke?: No Smoking Status: Never smoker Does the pt drink ETOH?: No Does the pt have substance abuse?: No - Immunizations Immunizations are current?: Yes - POLST Patient has POLST: No PD ED PE NORMAL - Vitals Vital signs reviewed: Yes - General General: Alert and oriented X 3, No acute distress, Well developed/nourished - HEENT HEENT: Atraumatic, Moist mucous membranes - Neck Neck: Supple, no meningeal sign, No JVD - Cardiac Cardiac: RRR, No murmur - Respiratory Respiratory: No respiratory distress, Clear bilaterally - Abdomen Abdomen: Normal bowel sounds, Soft, Non tender, Non distended - Back Back: No CVA TTP, No spinal TTP - Derm Derm: Normal color, Warm and dry, No rash Results - Vitals Vitals: Vital Signs - 24 hr 05/06/24 05/06/24 14:02 15:30 Temperature 36.6 C Heart Rate 64 64 Respiratory 18 16 Rate Blood Pressure 165/108 H 144/91 H O2 Saturation 98 98 Oxygen O2 Source Room air - Labs Labs: Laboratory Tests 05/06/24 05/06/24 14:19 14:19 WBC 5.8 RBC 5.96 Hgb 17.2 Hct 50.9 MCV 85.4 MCH 28.9 MCHC 33.8 RDW 13.2 Plt Count 164 MPV 11.6 H Neut # (Auto) 2.7 Lymph # (Auto) 2.5 [place] # (Auto) 0.6 Eos # (Auto) 0.0 Baso # (Auto) 0.0 Absolute Nucleated RBC 0.00 Nucleated RBC % 0.0 Sodium 139 Potassium 3.9 Chloride 103 Carbon Dioxide 31 Anion Gap 5.0 L BUN 15 Creatinine 0.8 Estimated GFR (MDRD) 102 Glucose 84 Calcium 10.1 Total Bilirubin 0.8 AST 13 ALT 16 Alkaline Phosphatase 60 Troponin I High Sens 3.2 Total Protein 6.7 Albumin 4.3 Globulin 2.4 Albumin/Globulin Ratio 1.8 Lipase 24 - Rads (name of study) No standard instances Relevant Findings:: Final report received PD Medical Decision Making - ED course Complexity details: reviewed results, re-evaluated patient, considered differential, d/w patient ED course: 49-year-old male presented with epigastric pain radiating into the sternum as well as shortness of breath and cough for the last couple of days as described in HPI. Patient is very well-appearing here, afebrile and in no acute distress. Differentials considered included GERD, viral illness, pneumonia, ACS, cholecystitis or cholelithiasis, pancreatitis, among others. We obtained lab work which is reassuring including CBC is unremarkable to white blood count, and CMP which was essentially normal, normal lipase normal liver and kidney function, and his troponin is 3.2. His EKG showed no acute ischemic changes, chest x-ray is negative. I did give the option of obtaining COVID test however he declined. I discussed with patient that he likely has a viral illness, there may be some reflux symptoms as well as he has had this in the past and not currently on any antacids therefore recommended that we restart Protonix or similar and that he stick to a fairly bland diet the next several days, avoiding any high fat, fried foods, meat etc. He was encouraged to stay upright for several hours after eating and avoid eating right before going to bed. I encouraged him to follow-up with his primary doctor if the symptoms persist or return to the ER if worsening including fever, increased pain. I have low suspicion for ACS given his reassuring troponin and EKG, there is no sign of pneumonia or other lung disease on his chest x-ray and I do believe he is stable for discharge home at this time. Departure - Departure Disposition: 01 Home, Self Care Clinical Impression: Atypical chest pain Gastroesophageal reflux disease Qualifiers: Esophagitis presence: esophagitis presence not specified Qualified Code(s): K21.9 - Gastro-esophageal reflux disease without esophagitis Instructions: ED Chest Pain Atypical Unkn Cause, ED GERD Prescriptions: Pantoprazole Sodium [Protonix] 40 mg PO DAILY #30 tab Comments: Julio Cesar, your workup today was reassuring. This pain does not seem to be coming from your heart; more likely you are having some acid reflux symptoms. Please restart taking the antacid. I have ordered this for you and sent to your pharmacy. I recommend for the next several days that you adhere to a light diet, with low fat and no fried foods, avoid any heavy foods, meats, or things that require a lot of digestion. If you develop a fever or increasing pain, please return to the ER. Forms: PCP List
== END 2024-05-06 15:58 | disposition home or self-care (01) ==
LOC: ED 13:44
DX: K21.9 Gastro-esophageal reflux disease without esophagitis (principal)
CPT/HCPCS: 36415; 80053; 83690; 84484; 85025; 93005; 99283; 99284